=== PATIENT | male | born 1955 | race Caucasian/White ===

== ENCOUNTER → 2016-09-16 | Outpatient (REF) | payer MEDICARE, MEDICAID ==
[~2016-09-16] MED LIST: ASPI81TA83 OR; CYMBALTA PO; FLEC150T OR; LASIX; LASIX PO; LISI5TAB OR; OMEP20TA7 OR; PRADAXA; PRADAXA PO; SPIR25TA2 OR; TRAZ50TA OR; TRILIPIX PO; [UNRECOGNIZED DRUG - OTHER] PO
[2016-09-16 15:51] LABS: ALBUMIN 3.4 GM/DL (3.2-5.2); ALBUMIN/GLOBULIN RATIO 1.03 (1.00-1.93); BILIRUBIN,DIRECT 0.3 MG/DL (0.0-0.2); BILIRUBIN,TOTAL 0.8 MG/DL (0.2-1.0); TOTAL PROTEIN 6.7 GM/DL (6.4-8.2)
== END ==
LOC: M LAB REF 15:01
PROVIDERS: ATTEND Internal Medicine Cardiovascular Disease
DX: E78.2 Mixed hyperlipidemia (principal)
CPT/HCPCS: 36415; 80061; 80076; G0463

== ENCOUNTER → 2017-05-17 | Outpatient (REF) | payer MEDICARE ==
[2017-05-17 15:02] LABS: HEMOGLOBIN 14.7 g/dl (14.0-18.0); MEAN CORPUSCULAR HEMOGLOBIN 32.2 pg (27.0-33.0); MEAN CORPUSCULAR HGB CONC 33.4 g/dl (32.0-36.5); MEAN CORPUSCULAR VOLUME 96.5 fl (80.0-96.0); PLATELET COUNT, AUTOMATED 225 10^3/uL (150-450); RED BLOOD COUNT 4.56 10^6/uL (4.30-6.10); RED CELL DISTRIBUTION WIDTH 14.5 % (11.5-14.5); WHITE BLOOD COUNT 7.8 10^3/uL (4.0-10.0)
[2017-05-17 15:31] LABS: ALBUMIN 3.5 GM/DL (3.2-5.2); ALBUMIN/GLOBULIN RATIO 1.17 (1.00-1.93); ALKALINE PHOSPHATASE 119 U/L (45-117); ALT/SGPT 51 U/L (12-78); ANION GAP 8 MEQ/L (8-16); AST/SGOT 29 U/L (7-37); BILIRUBIN,TOTAL 0.7 MG/DL (0.2-1.0); BLOOD UREA NITROGEN 12 MG/DL (7-18); CALCIUM LEVEL 8.9 MG/DL (8.8-10.2); CARBON DIOXIDE LEVEL 28 MEQ/L (21-32); CHLORIDE LEVEL 106 MEQ/L (98-107); GLOMERULAR FILTRATION RATE > 60.0 (>49); GLUCOSE, FASTING 102 MG/DL (70-100); POTASSIUM SERUM 4.3 MEQ/L (3.5-5.1); SODIUM LEVEL 142 MEQ/L (136-145); TOTAL PROTEIN 6.5 GM/DL (6.4-8.2)
== END ==
LOC: M SFHCLACO 08:56
DX: I48.91 Unspecified atrial fibrillation (principal)
CPT/HCPCS: 80053

== ENCOUNTER → 2017-06-09 | Outpatient (REF) | payer MEDICARE, MEDICAID ==
[2017-06-09 15:41] LABS: INR 2.75; PROTHROMBIN TIME 30.3 SECONDS (12.4-14.5)
== END ==
LOC: M LAB REF 14:57
DX: I48.91 Unspecified atrial fibrillation (principal)
CPT/HCPCS: 85610

== ENCOUNTER → 2017-06-16 | Outpatient (REF) | payer MEDICARE, MEDICAID ==
[2017-06-16 15:29] LABS: INR 3.46; PROTHROMBIN TIME 36.5 SECONDS (12.4-14.5)
== END ==
LOC: M LAB REF 14:53
DX: I48.91 Unspecified atrial fibrillation (principal); E03.9 Hypothyroidism, unspecified
CPT/HCPCS: 85610

== ENCOUNTER → 2017-06-23 | Outpatient (REF) | payer MEDICARE, MEDICAID ==
[2017-06-23 15:24] LABS: INR 3.09; PROTHROMBIN TIME 33.3 SECONDS (12.4-14.5)
== END ==
LOC: M LAB REF 14:52
DX: I48.91 Unspecified atrial fibrillation (principal)
CPT/HCPCS: 85610

== ENCOUNTER → 2017-07-07 | Outpatient (REF) | payer MEDICARE, MEDICAID ==
[2017-07-07 15:16] LABS: INR 2.27; PROTHROMBIN TIME 25.9 SECONDS (12.4-14.5)
== END ==
LOC: M LAB REF 14:45
DX: I48.91 Unspecified atrial fibrillation (principal)
CPT/HCPCS: 85610

== ENCOUNTER → 2017-07-14 | Outpatient (REF) | payer MEDICARE, MEDICAID ==
[2017-07-14 15:12] LABS: HEMOGLOBIN 14.1 g/dl (13.5-17.5); MEAN CORPUSCULAR HEMOGLOBIN 31.6 pg (27.0-33.0); MEAN CORPUSCULAR HGB CONC 32.8 g/dl (32.0-36.5); MEAN CORPUSCULAR VOLUME 96.4 fl (80.0-96.0); PLATELET COUNT, AUTOMATED 219 10^3/uL (150-450); RED BLOOD COUNT 4.46 10^6/uL (4.30-6.10); RED CELL DISTRIBUTION WIDTH 14.6 % (11.5-14.5); WHITE BLOOD COUNT 7.5 10^3/uL (4.0-10.0)
[2017-07-14 15:31] LABS: ANION GAP 6 MEQ/L (8-16); BLOOD UREA NITROGEN 13 MG/DL (7-18); CALCIUM LEVEL 8.5 MG/DL (8.8-10.2); CARBON DIOXIDE LEVEL 28 MEQ/L (21-32); CHLORIDE LEVEL 110 MEQ/L (98-107); CREATININE FOR GFR 0.81 MG/DL (0.70-1.30); GLOMERULAR FILTRATION RATE > 60.0 (>49); GLUCOSE, FASTING 86 MG/DL (70-100); INR 2.45; POTASSIUM SERUM 4.6 MEQ/L (3.5-5.1); PROTHROMBIN TIME 27.6 SECONDS (12.4-14.5); SODIUM LEVEL 144 MEQ/L (136-145)
== END ==
LOC: M LAB REF 14:59
DX: I77.0 Arteriovenous fistula, acquired (principal); I48.91 Unspecified atrial fibrillation
CPT/HCPCS: 80048

== ENCOUNTER → 2017-09-20 | Outpatient (REF) | payer MEDICARE ==
[2017-09-20 15:16] LABS: ALBUMIN 3.3 GM/DL (3.2-5.2); ALKALINE PHOSPHATASE 75 U/L (45-117); ALT/SGPT 36 U/L (12-78); ANION GAP 11 MEQ/L (8-16); AST/SGOT 30 U/L (7-37); BILIRUBIN,TOTAL 0.7 MG/DL (0.2-1.0); BLOOD UREA NITROGEN 20 MG/DL (7-18); CALCIUM LEVEL 8.1 MG/DL (8.8-10.2); CARBON DIOXIDE LEVEL 25 MEQ/L (21-32); CHLORIDE LEVEL 108 MEQ/L (98-107); CHOLESTEROL LEVEL 125 MG/DL (<200); CHOLESTEROL RISK RATIO 3.125 (<5); CREATININE FOR GFR 0.87 MG/DL (0.70-1.30); GLOMERULAR FILTRATION RATE > 60.0 (>49); GLUCOSE, FASTING 102 MG/DL (70-100); HDL CHOLESTEROL 40 MG/DL (>40); LDL CHOLESTEROL 51.6 MG/DL (<100); NON-HDL-C 85 MG/DL; POTASSIUM SERUM 3.9 MEQ/L (3.5-5.1); SODIUM LEVEL 144 MEQ/L (136-145); TOTAL PROTEIN 6.6 GM/DL (6.4-8.2); TRIGLYCERIDES LEVEL 167 MG/DL (<150)
== END ==
LOC: M SFHCLACO 10:07
DX: E78.2 Mixed hyperlipidemia (principal); I10 Essential (primary) hypertension
CPT/HCPCS: 80053

== ENCOUNTER → 2021-06-11 | Outpatient (CLI) | payer MEDICARE, MEDICAID, OTHER | LOC: M SOG 08:07 | PROVIDERS: ATTEND Orthopaedic Surgery | DX: M25.512 Pain in left shoulder (principal) ==

== ENCOUNTER → 2021-07-30 | Outpatient (CLI) | payer OTHER ==
[~2021-07-30] MED LIST changes: +ISOVUE-300 61% 50ML VIAL As Ordered ONE; +LIDOCAINE 1% MDV 20ML VIAL As Ordered ONE
== END ==
LOC: M RADPRO 08:58
PROVIDERS: ATTEND Orthopaedic Surgery
DX: S46.012D Strain of muscle(s) and tendon(s) of the rotator cuff of left shoulder, subsequent encounter (principal)
CPT/HCPCS: 23350; 73201; 77002; Q9967

== ENCOUNTER → 2022-03-01 | Outpatient (CLI) | payer MEDICARE, MEDICAID ==
[~2022-03-01] MED LIST changes: +ALLO300T2 PO; +ASPI-1 PO; +BUME2TAB3 PO; +CARV12.5 PO; +FOLI1TAB11 PO; -ISOVUE-300 61% 50ML VIAL As Ordered ONE; -LIDOCAINE 1% MDV 20ML VIAL As Ordered ONE; +LISI10TA22 PO; +MAGN250T7 PO; +MAPA500C PO; +MULT-40 PO; +PANT20TA6 PO; +POTA10CA33 PO; +PRED10TA2 PO; +TRAM50TA2 PO; +VITA100T71 PO
== END ==
LOC: M LABSMTC 11:15
PROVIDERS: ATTEND Anesthesiology
DX: Z01.812 Encounter for preprocedural laboratory examination (principal); Z11.52 Encounter for screening for COVID-19

== ENCOUNTER 2022-03-04 09:23 | Day surgery (SDC) | payer MEDICARE, MEDICAID ==
[~2022-03-04] VITALS: Ht 182.9 cm; Wt 135.6 kg
[~2022-03-04 09:23] MED LIST changes: +CYCLOPENTOLATE 1% OPHTH SOLN 2ML BTL OD SCH; +FLURBIPROFEN 0.03% OPHTH SOLN 2.5 ML OD SCH; +LIDOCAINE 1% 1ML PF SYRINGE (OR EYE CASES) As Ordered ONE; +LR 1,000 ML IV SCH; +MAXITROL OPHTH SUSP 5ML As Ordered ONE; +PHENYLEPHRINE 10% OPHTH SOL 5ML OD ONE; +PHENYLEPHRINE 2.5% OPHTH SOL 2ML OD SCH; +TETRACAINE 0.5% OPHTH SOLN 4ML OD SCH
[2022-03-04] MEDS ORDERED: MIDAZOLAM INJ 2MG/2ML VIAL (J2250 PER 1MG) As Ordered ONE (11:23)
[2022-03-04] MEDS ORDERED: fentaNYL 100 MCG/2 ML INJECTION As Ordered ONE (11:23)
[2022-03-04] MEDS ORDERED: ACETYLCHOLINE OPHTH SOLN 1% 2ML (MIOCHOL-E) As Ordered ONE (12:38)
[2022-03-04 12:48] VITALS: BP 104/62
== END 2022-03-04 13:15 | disposition home or self-care (01) ==
LOC: M SDC 09:23
PROVIDERS: ATTEND Ophthalmology
DX: H25.11 Age-related nuclear cataract, right eye (principal); I48.91 Unspecified atrial fibrillation; I10 Essential (primary) hypertension; Z95.0 Presence of cardiac pacemaker; G47.33 Obstructive sleep apnea (adult) (pediatric); Z79.82 Long term (current) use of aspirin; Z79.899 Other long term (current) drug therapy
CPT/HCPCS: 66983; J2250; J3010; V2632

== ENCOUNTER → 2022-04-26 | Outpatient (CLI) | payer MEDICARE, MEDICAID ==
[~2022-04-26] MED LIST changes: -CYCLOPENTOLATE 1% OPHTH SOLN 2ML BTL OD SCH; -FLURBIPROFEN 0.03% OPHTH SOLN 2.5 ML OD SCH; -LIDOCAINE 1% 1ML PF SYRINGE (OR EYE CASES) As Ordered ONE; -LR 1,000 ML IV SCH; -MAXITROL OPHTH SUSP 5ML As Ordered ONE; -PHENYLEPHRINE 10% OPHTH SOL 5ML OD ONE; -PHENYLEPHRINE 2.5% OPHTH SOL 2ML OD SCH; -TETRACAINE 0.5% OPHTH SOLN 4ML OD SCH
== END ==
LOC: M LABSMTC 09:02
PROVIDERS: ATTEND Anesthesiology
DX: Z01.812 Encounter for preprocedural laboratory examination (principal); Z11.52 Encounter for screening for COVID-19

== ENCOUNTER 2022-04-29 07:26 | Day surgery (SDC) | payer MEDICARE, MEDICAID ==
[~2022-04-29] VITALS: Ht 182.9 cm; Wt 140.1 kg
[~2022-04-29 07:26] MED LIST changes: +CYCLOPENTOLATE 1% OPHTH SOLN 2ML BTL OS SCH; +FLURBIPROFEN 0.03% OPHTH SOLN 2.5 ML OS SCH; +LIDOCAINE 1% SDV 5ML VIAL As Ordered ONE; +LR 1,000 ML IV SCH; +MAXITROL OPHTH SUSP 5ML As Ordered ONE; +PHENYLEPHRINE 10% OPHTH SOL 5ML OS ONE; +PHENYLEPHRINE 2.5% OPHTH SOL 2ML OS SCH; +TETRACAINE 0.5% OPHTH SOLN 4ML OS SCH
[2022-04-29] MEDS ORDERED: MIDAZOLAM INJ 2MG/2ML VIAL As Ordered ONE (11:19)
[2022-04-29 12:30] VITALS: BP 124/71
== END 2022-04-29 12:35 | disposition home or self-care (01) ==
LOC: M SDC 07:26
PROVIDERS: ATTEND Ophthalmology
DX: H25.12 Age-related nuclear cataract, left eye (principal); I10 Essential (primary) hypertension; I48.91 Unspecified atrial fibrillation; Z95.5 Presence of coronary angioplasty implant and graft; M10.9 Gout, unspecified; M19.90 Unspecified osteoarthritis, unspecified site; Z86.73 Personal history of transient ischemic attack (TIA), and cerebral infarction without residual deficits; Z95.818 Presence of other cardiac implants and grafts; Z79.899 Other long term (current) drug therapy; Z79.82 Long term (current) use of aspirin; Z79.52 Long term (current) use of systemic steroids; Z79.891 Long term (current) use of opiate analgesic
CPT/HCPCS: 66984; J2250; V2632

== ENCOUNTER → 2022-06-28 | Outpatient (REF) | payer MEDICARE, MEDICAID ==
[~2022-06-28] MED LIST changes: -CYCLOPENTOLATE 1% OPHTH SOLN 2ML BTL OS SCH; -FLURBIPROFEN 0.03% OPHTH SOLN 2.5 ML OS SCH; -LIDOCAINE 1% SDV 5ML VIAL As Ordered ONE; -LR 1,000 ML IV SCH; -MAXITROL OPHTH SUSP 5ML As Ordered ONE; -PHENYLEPHRINE 10% OPHTH SOL 5ML OS ONE; -PHENYLEPHRINE 2.5% OPHTH SOL 2ML OS SCH; -TETRACAINE 0.5% OPHTH SOLN 4ML OS SCH
[2022-06-28 14:19] LABS: HEPATITIS B CORE ANTIBODY IGM NEGATIVE (NEGATIVE); HEPATITIS C VIRUS ABY INDEX 0.1 INDEX (<0.8)
== END ==
LOC: M SFHCADAM 10:14
PROVIDERS: ATTEND Physician Assistant Medical
DX: R79.89 Other specified abnormal findings of blood chemistry (principal)

== ENCOUNTER → 2022-08-02 | Outpatient (CLI) | payer MEDICARE, MEDICAID ==
[2022-08-02 13:33] LABS: ALBUMIN 3.1 G/DL (3.2-5.2); ALKALINE PHOSPHATASE 70 U/L (46-116); ALT/SGPT 160 U/L (7.0-40); AST/SGOT 121 U/L (<34); BILIRUBIN,TOTAL 1.1 MG/DL (0.3-1.2); BLOOD UREA NITROGEN 20 MG/DL (9-23); CALCIUM LEVEL 8.8 MG/DL (8.3-10.6); CARBON DIOXIDE LEVEL 31 MMOL/L (20-31); CHLORIDE LEVEL 104 MMOL/L (98-107); CREATININE FOR GFR 0.86 MG/DL (0.70-1.30); GLOMERULAR FILTRATION RATE > 60.0 (>49); GLUCOSE, FASTING 98 MG/DL (74-106); POTASSIUM SERUM 3.8 MMOL/L (3.5-5.1); SODIUM LEVEL 141 MMOL/L (136-145); TOTAL PROTEIN 6.4 G/DL (5.7-8.2)
== END ==
LOC: M PLALAB 10:32
PROVIDERS: ATTEND Physician Assistant Medical
DX: R79.89 Other specified abnormal findings of blood chemistry (principal)

== ENCOUNTER → 2022-08-02 | Outpatient (CLI) | payer MEDICARE, MEDICAID | LOC: M WHC 09:54 | PROVIDERS: ATTEND Physician Assistant Medical | DX: R79.89 Other specified abnormal findings of blood chemistry (principal) ==

== ENCOUNTER → 2022-12-22 | Outpatient (REF) | payer MEDICARE, MEDICAID ==
[~2022-12-22] MED LIST changes: -POTA10CA33 PO; +POTA10CA60 PO
[2022-12-22 13:28] LABS: BASO # 0.1 10^3/uL (0.0-0.2); BASO % 0.7 % (0.0-1.0); EOS # 0.1 10^3/uL (0.0-0.5); EOS % 0.7 % (0.0-3.0); HEMATOCRIT 35.2 % (42.0-52.0); HEMOGLOBIN 12.7 g/dl (13.5-17.5); LYMPH % 20.7 % (24.0-44.0); MEAN CORPUSCULAR HEMOGLOBIN 39.7 pg (27.0-33.0); MEAN CORPUSCULAR HGB CONC 36.1 g/dl (32.0-36.5); MONO # 1.4 10^3/uL (0.0-0.8); MONO % 14.7 % (2.0-8.0); NEUTROPHILS # 5.9 10^3/uL (1.5-8.5); NEUTROPHILS % 61.5 % (36.0-66.0); PLATELET COUNT, AUTOMATED 146 10^3/uL (150-450); WHITE BLOOD COUNT 9.5 10^3/uL (4.0-10.0)
[2022-12-22 13:46] LABS: FOLATE > 24.0 NG/ML (>5.4); THYROID STIMULATING HORMONE 2.017 uIU/ML (0.55-4.78); TOTAL 25(OH) VITAMIN D 38.4 NG/ML (20.0-100.0); VITAMIN B12 LEVEL 1186 PG/ML (211-911)
[2022-12-22 13:52] LABS: ALBUMIN 2.2 G/DL (3.2-5.2); ALKALINE PHOSPHATASE 149 U/L (46-116); ALT/SGPT 224 U/L (7.0-40); AST/SGOT 418 U/L (<34); BILIRUBIN,TOTAL 12.8 MG/DL (0.3-1.2); BLOOD UREA NITROGEN 16 MG/DL (9-23); CALCIUM LEVEL 8.1 MG/DL (8.3-10.6); CARBON DIOXIDE LEVEL 36 MMOL/L (20-31); CHLORIDE LEVEL 97 MMOL/L (98-107); CHOLESTEROL LEVEL 138 MG/DL (<200); CHOLESTEROL RISK RATIO 10.45 (<5); CREATININE FOR GFR 0.74 MG/DL (0.70-1.30); GLOMERULAR FILTRATION RATE > 60.0 (>49); GLUCOSE, FASTING 93 MG/DL (74-106); HDL CHOLESTEROL 13.2 MG/DL (>40); LDL CHOLESTEROL 83.4 MG/DL (<100); MAGNESIUM LEVEL 2.1 MG/DL (1.8-2.4); NON-HDL-C 124.8 MG/DL; POTASSIUM SERUM 2.9 MMOL/L (3.5-5.1); SODIUM LEVEL 139 MMOL/L (136-145); TOTAL PROTEIN 6.4 G/DL (5.7-8.2); TRIGLYCERIDES LEVEL 207 MG/DL (<150)
== END ==
LOC: M SFHCADAM 11:14
PROVIDERS: ATTEND Physician Assistant Medical
DX: E87.6 Hypokalemia (principal); I25.10 Atherosclerotic heart disease of native coronary artery without angina pectoris; E78.2 Mixed hyperlipidemia; E53.8 Deficiency of other specified B group vitamins; K76.0 Fatty (change of) liver, not elsewhere classified; E66.01 Morbid (severe) obesity due to excess calories

== ENCOUNTER → 2023-01-03 | Outpatient (REF) | payer MEDICARE, MEDICAID ==
[2023-01-03 15:58] LABS: ALKALINE PHOSPHATASE 118 U/L (46-116); ALT/SGPT 130 U/L (7.0-40); AST/SGOT 215 U/L (<34); BILIRUBIN,TOTAL 6.1 MG/DL (0.3-1.2); BLOOD UREA NITROGEN 14 MG/DL (9-23); CALCIUM LEVEL 8.1 MG/DL (8.3-10.6); CARBON DIOXIDE LEVEL 32 MMOL/L (20-31); CHLORIDE LEVEL 100 MMOL/L (98-107); CREATININE FOR GFR 0.71 MG/DL (0.70-1.30); GLOMERULAR FILTRATION RATE > 60.0 (>49); GLUCOSE, FASTING 84 MG/DL (74-106); POTASSIUM SERUM 3.5 MMOL/L (3.5-5.1); SODIUM LEVEL 138 MMOL/L (136-145); TOTAL PROTEIN 5.8 G/DL (5.7-8.2)
== END ==
LOC: M SFHCADAM 09:05
PROVIDERS: ATTEND Physician Assistant Medical
DX: E87.6 Hypokalemia (principal)

== ENCOUNTER → 2023-01-12 | Outpatient (REF) | payer MEDICARE, MEDICAID ==
[2023-01-12 13:14] LABS: BASO # 0.1 10^3/uL (0.0-0.2); BASO % 0.8 % (0.0-1.0); EOS # 0.1 10^3/uL (0.0-0.5); EOS % 1.2 % (0.0-3.0); HEMATOCRIT 34.4 % (42.0-52.0); HEMOGLOBIN 11.9 g/dl (13.5-17.5); LYMPH # 1.9 10^3/uL (1.5-5.0); LYMPH % 28.5 % (24.0-44.0); MEAN CORPUSCULAR HGB CONC 34.6 g/dl (32.0-36.5); MONO % 14.8 % (2.0-8.0); NEUTROPHILS # 3.6 10^3/uL (1.5-8.5); NEUTROPHILS % 54.1 % (36.0-66.0); PLATELET COUNT, AUTOMATED 124 10^3/uL (150-450); WHITE BLOOD COUNT 6.6 10^3/uL (4.0-10.0)
[2023-01-12 13:21] LABS: MEAN CORPUSCULAR VOLUME 118.6 fl (80.0-96.0)
[2023-01-12 13:22] LABS: LIPASE 48 U/L (12-53)
[2023-01-12 14:01] LABS: ALBUMIN 2.3 G/DL (3.2-5.2); ALKALINE PHOSPHATASE 132 U/L (46-116); ALT/SGPT 148 U/L (7.0-40); AST/SGOT 247 U/L (<34); BILIRUBIN,TOTAL 6.4 MG/DL (0.3-1.2); BLOOD UREA NITROGEN 15 MG/DL (9-23); CALCIUM LEVEL 7.2 MG/DL (8.3-10.6); CARBON DIOXIDE LEVEL 34 MMOL/L (20-31); CHLORIDE LEVEL 100 MMOL/L (98-107); CREATININE FOR GFR 0.66 MG/DL (0.70-1.30); GLOMERULAR FILTRATION RATE > 60.0 (>49); GLUCOSE, FASTING 80 MG/DL (74-106); MAGNESIUM LEVEL 1.9 MG/DL (1.8-2.4); POTASSIUM SERUM 2.8 MMOL/L (3.5-5.1); SODIUM LEVEL 140 MMOL/L (136-145); TOTAL PROTEIN 6.3 G/DL (5.7-8.2)
== END ==
LOC: M LABDRWAD 12:12
PROVIDERS: ATTEND Physician Assistant Medical
DX: I25.10 Atherosclerotic heart disease of native coronary artery without angina pectoris (principal); E83.42 Hypomagnesemia; E87.6 Hypokalemia; R79.89 Other specified abnormal findings of blood chemistry

== ENCOUNTER → 2023-01-21 | Outpatient (REF) | payer MEDICARE, MEDICAID ==
[2023-01-21 13:45] LABS: BLOOD UREA NITROGEN 15 MG/DL (9-23); CALCIUM LEVEL 8.8 MG/DL (8.3-10.6); CARBON DIOXIDE LEVEL 34 MMOL/L (20-31); CHLORIDE LEVEL 101 MMOL/L (98-107); CREATININE FOR GFR 0.72 MG/DL (0.70-1.30); GLOMERULAR FILTRATION RATE > 60.0 (>49); GLUCOSE, FASTING 78 MG/DL (74-106); POTASSIUM SERUM 3.6 MMOL/L (3.5-5.1); SODIUM LEVEL 142 MMOL/L (136-145)
== END ==
LOC: M SFHCADAM 09:15
PROVIDERS: ATTEND Physician Assistant Medical
DX: E87.6 Hypokalemia (principal)

== ENCOUNTER → 2023-02-22 | Outpatient (REF) | payer MEDICARE, MEDICAID ==
[2023-02-22 15:05] LABS: ALKALINE PHOSPHATASE 139 U/L (46-116); ALT/SGPT 188 U/L (7.0-40); AST/SGOT 326 U/L (<34); BILIRUBIN,TOTAL 5.5 MG/DL (0.3-1.2); BLOOD UREA NITROGEN 14 MG/DL (9-23); CALCIUM LEVEL 8.1 MG/DL (8.3-10.6); CARBON DIOXIDE LEVEL 31 MMOL/L (20-31); CHLORIDE LEVEL 103 MMOL/L (98-107); CREATININE FOR GFR 0.76 MG/DL (0.70-1.30); GLOMERULAR FILTRATION RATE > 60.0 (>49); GLUCOSE, FASTING 91 MG/DL (74-106); POTASSIUM SERUM 3.5 MMOL/L (3.5-5.1); SODIUM LEVEL 141 MMOL/L (136-145); TOTAL PROTEIN 6.3 G/DL (5.7-8.2)
== END ==
LOC: M SFHCADAM 09:22
PROVIDERS: ATTEND Physician Assistant Medical
DX: E87.6 Hypokalemia (principal)

== ENCOUNTER → 2023-02-22 | Outpatient (REF) | payer MEDICARE, MEDICAID ==
[2023-02-22 14:58] LABS: BASO # 0.1 10^3/uL (0.0-0.2); BASO % 0.7 % (0.0-1.0); EOS # 0.1 10^3/uL (0.0-0.5); EOS % 1.1 % (0.0-3.0); HEMATOCRIT 35.8 % (42.0-52.0); HEMOGLOBIN 12.5 g/dl (13.5-17.5); LYMPH # 2.3 10^3/uL (1.5-5.0); LYMPH % 32.5 % (24.0-44.0); MEAN CORPUSCULAR HEMOGLOBIN 40.2 pg (27.0-33.0); MEAN CORPUSCULAR HGB CONC 34.9 g/dl (32.0-36.5); MONO # 0.7 10^3/uL (0.0-0.8); MONO % 10.4 % (2.0-8.0); NEUTROPHILS # 3.8 10^3/uL (1.5-8.5); NEUTROPHILS % 54.6 % (36.0-66.0); PLATELET COUNT, AUTOMATED 115 10^3/uL (150-450); RED BLOOD COUNT 3.11 10^6/uL (4.30-6.10)
[2023-02-22 15:07] LABS: ALKALINE PHOSPHATASE 141 U/L (46-116); ALT/SGPT 185 U/L (7.0-40); AST/SGOT 326 U/L (<34); BILIRUBIN,TOTAL 5.8 MG/DL (0.3-1.2); BLOOD UREA NITROGEN 15 MG/DL (9-23); CALCIUM LEVEL 8.1 MG/DL (8.3-10.6); CARBON DIOXIDE LEVEL 31 MMOL/L (20-31); CHLORIDE LEVEL 100 MMOL/L (98-107); CREATININE FOR GFR 0.77 MG/DL (0.70-1.30); GLOMERULAR FILTRATION RATE > 60.0 (>49); GLUCOSE, FASTING 92 MG/DL (74-106); MAGNESIUM LEVEL 1.9 MG/DL (1.8-2.4); POTASSIUM SERUM 3.4 MMOL/L (3.5-5.1); SODIUM LEVEL 138 MMOL/L (136-145); TOTAL PROTEIN 6.3 G/DL (5.7-8.2)
[2023-02-22 15:13] LABS: MEAN CORPUSCULAR VOLUME 115.1 fl (80.0-96.0)
== END ==
LOC: M LABDRWAD 12:31
PROVIDERS: ATTEND Registered Nurse
DX: E78.2 Mixed hyperlipidemia (principal); I50.32 Chronic diastolic (congestive) heart failure; I48.0 Paroxysmal atrial fibrillation; R06.02 Shortness of breath

== ENCOUNTER → 2023-02-24 | Outpatient (CLI) | payer MEDICARE, MEDICAID | LOC: M LABDRWAD 10:35 | PROVIDERS: ATTEND Registered Nurse | DX: E78.2 Mixed hyperlipidemia (principal); I48.91 Unspecified atrial fibrillation; I50.32 Chronic diastolic (congestive) heart failure; L24.A9 Irritant contact dermatitis due friction or contact with other specified body fluids; Z95.0 Presence of cardiac pacemaker; I47.20 Ventricular tachycardia, unspecified ==

== ENCOUNTER → 2023-03-22 | Outpatient (REF) | payer MEDICARE, MEDICAID ==
[2023-03-22 14:15] LABS: BLOOD UREA NITROGEN 16 MG/DL (9-23); CALCIUM LEVEL 7.5 MG/DL (8.3-10.6); CARBON DIOXIDE LEVEL 27 MMOL/L (20-31); CHLORIDE LEVEL 108 MMOL/L (98-107); CREATININE FOR GFR 0.69 MG/DL (0.70-1.30); GLOMERULAR FILTRATION RATE > 60.0 (>49); GLUCOSE, FASTING 71 MG/DL (74-106); POTASSIUM SERUM 3.9 MMOL/L (3.5-5.1); SODIUM LEVEL 142 MMOL/L (136-145)
== END ==
LOC: M LABWUC 12:38
PROVIDERS: ATTEND Family Medicine
DX: I11.0 Hypertensive heart disease with heart failure (principal)

== ENCOUNTER → 2023-04-04 | Outpatient (REF) | payer MEDICARE, MEDICAID ==
[2023-04-04 13:32] LABS: ALKALINE PHOSPHATASE 125 U/L (46-116); ALT/SGPT 146 U/L (7.0-40); AST/SGOT 199 U/L (<34); BILIRUBIN,TOTAL 4.4 MG/DL (0.3-1.2); BLOOD UREA NITROGEN 14 MG/DL (9-23); CALCIUM LEVEL 7.8 MG/DL (8.3-10.6); CARBON DIOXIDE LEVEL 32 MMOL/L (20-31); CHLORIDE LEVEL 108 MMOL/L (98-107); CREATININE FOR GFR 0.67 MG/DL (0.70-1.30); GLOMERULAR FILTRATION RATE > 60.0 (>49); GLUCOSE, FASTING 101 MG/DL (74-106); MAGNESIUM LEVEL 1.9 MG/DL (1.8-2.4); POTASSIUM SERUM 3.7 MMOL/L (3.5-5.1); SODIUM LEVEL 143 MMOL/L (136-145); TOTAL PROTEIN 5.7 G/DL (5.7-8.2)
== END ==
LOC: M LABDRWAD 12:28
PROVIDERS: ATTEND Registered Nurse
DX: R06.02 Shortness of breath (principal); I50.32 Chronic diastolic (congestive) heart failure; I50.9 Heart failure, unspecified; I48.91 Unspecified atrial fibrillation

== ENCOUNTER → 2023-04-15 | Outpatient (CLI) | payer MEDICARE, MEDICAID ==
[2023-04-15 13:11] LABS: INR 1.36; PROTHROMBIN TIME 16.4 SECONDS (12.5-14.5)
[2023-04-15 13:14] LABS: ALKALINE PHOSPHATASE 148 U/L (46-116); ALT/SGPT 130 U/L (7.0-40); AST/SGOT 192 U/L (<34); BILIRUBIN,DIRECT 2.9 MG/DL (<0.4); BILIRUBIN,TOTAL 4.5 MG/DL (0.3-1.2); IRON (FE) 180 UG/DL (65-175); PERCENT SATURATION 60.4 % (19.7-50.0); TOTAL IRON BINDING CAPACITY 298 UG/DL (250-425); TOTAL PROTEIN 5.9 G/DL (5.7-8.2)
[2023-04-15 13:50] LABS: HEPATITIS B CORE ANTIBODY IGM NEGATIVE (NEGATIVE); HEPATITIS C VIRUS ABY INDEX 0.58 INDEX (<0.8)
== END ==
LOC: M ADAMS 10:51
PROVIDERS: ATTEND Internal Medicine Gastroenterology
DX: K76.1 Chronic passive congestion of liver (principal); K70.10 Alcoholic hepatitis without ascites; Z11.59 Encounter for screening for other viral diseases

== ENCOUNTER → 2023-04-25 | Outpatient (CLI) | payer MEDICARE, MEDICAID ==
[2023-04-25 15:42] LABS: BASO # 0.1 10^3/uL (0.0-0.2); BASO % 0.7 % (0.0-1.0); EOS # 0.1 10^3/uL (0.0-0.5); EOS % 1.1 % (0.0-3.0); HEMATOCRIT 34.6 % (42.0-52.0); HEMOGLOBIN 12.1 g/dl (13.5-17.5); LYMPH # 2.3 10^3/uL (1.5-5.0); LYMPH % 31.6 % (24.0-44.0); MEAN CORPUSCULAR HEMOGLOBIN 38.8 pg (27.0-33.0); MEAN CORPUSCULAR VOLUME 110.9 fl (80.0-96.0); MONO # 0.8 10^3/uL (0.0-0.8); MONO % 10.7 % (2.0-8.0); NEUTROPHILS % 55.4 % (36.0-66.0); RED BLOOD COUNT 3.12 10^6/uL (4.30-6.10); WHITE BLOOD COUNT 7.3 10^3/uL (4.0-10.0)
[2023-04-25 16:01] LABS: PLATELET COUNT, AUTOMATED 94 10^3/uL (150-450)
[2023-04-25 16:11] LABS: ALBUMIN 2.1 G/DL (3.2-5.2); ALKALINE PHOSPHATASE 152 U/L (46-116); ALT/SGPT 139 U/L (7.0-40); AST/SGOT 241 U/L (<34); BLOOD UREA NITROGEN 12 MG/DL (9-23); CALCIUM LEVEL 7.7 MG/DL (8.3-10.6); CARBON DIOXIDE LEVEL 30 MMOL/L (20-31); CHLORIDE LEVEL 101 MMOL/L (98-107); CHOLESTEROL LEVEL 125 MG/DL (<200); CHOLESTEROL RISK RATIO 3.72 (<5); CREATININE FOR GFR 0.67 MG/DL (0.70-1.30); GLOMERULAR FILTRATION RATE > 60.0 (>49); GLUCOSE, FASTING 85 MG/DL (74-106); HDL CHOLESTEROL 33.6 MG/DL (>40); LDL CHOLESTEROL 69.6 MG/DL (<100); MAGNESIUM LEVEL 1.8 MG/DL (1.8-2.4); NON-HDL-C 91.4 MG/DL; POTASSIUM SERUM 3.2 MMOL/L (3.5-5.1); SODIUM LEVEL 137 MMOL/L (136-145); THYROID STIMULATING HORMONE 1.678 uIU/ML (0.55-4.78); TOTAL PROTEIN 6.6 G/DL (5.7-8.2); TRIGLYCERIDES LEVEL 109 MG/DL (<150)
[2023-04-27 15:09] LABS: LDL DIRECT 57 mg/dL (0-99)
== END ==
LOC: M LAB 15:11
PROVIDERS: ATTEND Internal Medicine Cardiovascular Disease
DX: I50.32 Chronic diastolic (congestive) heart failure (principal); E78.2 Mixed hyperlipidemia; I48.91 Unspecified atrial fibrillation; R06.02 Shortness of breath; R73.09 Other abnormal glucose; Z13.29 Encounter for screening for other suspected endocrine disorder

== ENCOUNTER → 2023-05-17 | Outpatient (CLI) | payer MEDICARE, MEDICAID | LOC: M RAD 08:18 | PROVIDERS: ATTEND Internal Medicine Nephrology | DX: I10 Essential (primary) hypertension (principal); K74.60 Unspecified cirrhosis of liver; R16.1 Splenomegaly, not elsewhere classified ==

== ENCOUNTER → 2023-05-23 | Outpatient (REF) | payer MEDICARE, MEDICAID ==
[2023-05-23 13:31] LABS: ALBUMIN 1.8 G/DL (3.2-5.2); ALKALINE PHOSPHATASE 173 U/L (46-116); ALT/SGPT 150 U/L (7.0-40); AST/SGOT 274 U/L (<34); BILIRUBIN,DIRECT 9.8 MG/DL (<0.4); BILIRUBIN,TOTAL 14.3 MG/DL (0.3-1.2); BLOOD UREA NITROGEN 20 MG/DL (9-23); CALCIUM LEVEL 7.2 MG/DL (8.3-10.6); CARBON DIOXIDE LEVEL 29 MMOL/L (20-31); CHLORIDE LEVEL 104 MMOL/L (98-107); GLOMERULAR FILTRATION RATE > 60.0 (>49); GLUCOSE, FASTING 85 MG/DL (74-106); POTASSIUM SERUM 3.3 MMOL/L (3.5-5.1); SODIUM LEVEL 140 MMOL/L (136-145); TOTAL PROTEIN 6.4 G/DL (5.7-8.2)
== END ==
LOC: M SFHCADAM 11:14
PROVIDERS: ATTEND Physician Assistant Medical
DX: K70.31 Alcoholic cirrhosis of liver with ascites (principal)

== ENCOUNTER → 2023-05-26 | Outpatient (CLI) | payer MEDICARE, MEDICAID ==
[~2023-05-26] MED LIST changes: +ALDA25TA2 PO; +ASPI81TA26 PO; +CARV6.25 PO
== END ==
LOC: M RAD 07:26
PROVIDERS: ATTEND Physician Assistant Medical
DX: K76.0 Fatty (change of) liver, not elsewhere classified (principal); K70.31 Alcoholic cirrhosis of liver with ascites

== ENCOUNTER → 2023-05-26 | Outpatient (CLI) | payer MEDICARE, MEDICAID ==
[~2023-05-26] VITALS: Ht 182.9 cm; Wt 290.0 kg
[2023-05-26 13:32] VITALS: TEMP 98.1
[2023-05-26 15:45] VITALS: BP 142/67; O2SAT 99
[2023-05-26 16:07] LABS: APPEARANCE, BODY FLUID CLEAR (CLEAR); ASCITES FL COLOR YELLOW (COLORLESS); SOURCE, BODY FLUID ASCITES
[2023-05-26 18:01] LABS: SOURCE, BODY FLUID ALBUMIN ASCITES
[2023-05-26 18:08] LABS: SOURCE, BODY FLUID TOT PROTEIN ASCITES; TOTAL PROTEIN, BODY FLUID < 2.0 G/DL (NOT ESTABLISHED)
== END ==
LOC: M IRPRO 13:12
PROVIDERS: ATTEND Physician Assistant Medical
DX: K70.31 Alcoholic cirrhosis of liver with ascites (principal); K76.0 Fatty (change of) liver, not elsewhere classified

== ENCOUNTER → 2023-06-06 | Outpatient (CLI) | payer MEDICARE, MEDICAID ==
[2023-06-06 08:15] VITALS: TEMP 95.8
[2023-06-06 09:03] VITALS: BP 136/60; O2SAT 100
== END ==
LOC: M IRPRO 07:42
PROVIDERS: ATTEND Physician Assistant Medical
DX: K70.31 Alcoholic cirrhosis of liver with ascites (principal); R60.9 Edema, unspecified

== ENCOUNTER → 2023-06-06 | Outpatient (CLI) | payer MEDICARE, MEDICAID ==
[2023-06-06 09:41] LABS: BLOOD UREA NITROGEN 23 MG/DL (9-23); CALCIUM LEVEL 7.7 MG/DL (8.3-10.6); CARBON DIOXIDE LEVEL 32 MMOL/L (20-31); CHLORIDE LEVEL 103 MMOL/L (98-107); CREATININE FOR GFR 0.95 MG/DL (0.70-1.30); GLOMERULAR FILTRATION RATE > 60.0 (>49); GLUCOSE, FASTING 97 MG/DL (74-106); POTASSIUM SERUM 3.7 MMOL/L (3.5-5.1); SODIUM LEVEL 137 MMOL/L (136-145)
== END ==
LOC: M LAB 07:46
PROVIDERS: ATTEND Internal Medicine Nephrology
DX: R60.9 Edema, unspecified (principal)

== ENCOUNTER 2023-06-13 04:55 | Inpatient (IN) | payer MEDICARE, MEDICAID ==
[~2023-06-13] VITALS: Ht 182.9 cm; Wt 136.7 kg
[2023-06-13 08:39] LABS: LIPASE 46 U/L (12-53)
[2023-06-13 08:49] LABS: ALBUMIN 1.7 G/DL (3.2-5.2); ALKALINE PHOSPHATASE 159 U/L (46-116); ALT/SGPT 91 U/L (7.0-40); AST/SGOT 174 U/L (<34); BILIRUBIN,DIRECT 10.4 MG/DL (<0.4); BILIRUBIN,TOTAL 17.4 MG/DL (0.3-1.2); BLOOD UREA NITROGEN 26 MG/DL (9-23); CARBON DIOXIDE LEVEL 23 MMOL/L (20-31); CHLORIDE LEVEL 104 MMOL/L (98-107); CREATININE FOR GFR 1.17 MG/DL (0.70-1.30); GLOMERULAR FILTRATION RATE > 60.0 (>49); GLUCOSE, FASTING 76 MG/DL (74-106); POTASSIUM SERUM 5.1 MMOL/L (3.5-5.1); SODIUM LEVEL 134 MMOL/L (136-145); TOTAL PROTEIN 6.4 G/DL (5.7-8.2)
[2023-06-13 08:54] LABS: HEMATOCRIT 32.8 % (42.0-52.0); HEMOGLOBIN 11.3 g/dl (13.5-17.5); MEAN CORPUSCULAR HEMOGLOBIN 40.6 pg (27.0-33.0); MEAN CORPUSCULAR HGB CONC 34.5 g/dl (32.0-36.5); RED BLOOD COUNT 2.78 10^6/uL (4.30-6.10); WHITE BLOOD COUNT 7.5 10^3/uL (4.0-10.0)
[2023-06-13 09:03] LABS: PLATELET COUNT, AUTOMATED 95 10^3/uL (150-450)
[2023-06-13 09:20] LABS: ANISOCYTOSIS 1+; ATYPICAL LYMPH 1 % (0-5); LYMPHOCYTES 13 % (16-44); MONOCYTES 13 % (0-5); NEUTROPHILS 55 % (28-66); PLATELET ESTIMATE DECREASED (NORMAL); POIKILOCYTOSIS 1+; POLYCHROMASIA 1+
[2023-06-13] MEDS ORDERED: ISOVUE-370 76% 100ML VIAL As Ordered ONE (09:34)
[2023-06-13 12:05] LABS: INR 1.72; PARTIAL THROMBOPLASTIN TIME 33.9 SECONDS (24.8-34.2); PROTHROMBIN TIME 19.6 SECONDS (12.5-14.5)
[2023-06-13] MEDS ORDERED: BUME2TAB3 PO (12:40)
[2023-06-13] MEDS ORDERED: BUDE10.2 INH (12:40)
[2023-06-13] MEDS ORDERED: ACET-683 PO (12:40)
[2023-06-13] MEDS ORDERED: HOME MED LIST COMPLETE! XX SCH (12:40)
[2023-06-13] MEDS ORDERED: CARV3.12 PO (12:40)
[2023-06-13] MEDS ORDERED: ALBU8.5H INH (12:40)
[2023-06-13] MEDS ORDERED: EPLE25TA PO (12:40)
[2023-06-13 12:46] LABS: RSV AMPLIFICATION NEGATIVE (NEGATIVE)
[2023-06-13 13:09] LABS: FOLATE > 24.00 NG/ML (>5.4); VITAMIN B12 LEVEL 1859 PG/ML (211-911)
[2023-06-13 13:18] LABS: PROCALCITONIN 11.91 ng/ml
[2023-06-13 13:58] VITALS: BP 114/57; TEMP 98.1; O2SAT 100
[2023-06-13 14:03] LABS: SOURCE, BODY FLUID ALBUMIN ASCITES
[2023-06-13 14:08] LABS: SOURCE, BODY FLUID GLUCOSE ASCITES
[2023-06-13 14:10] LABS: SOURCE, BODY FLUID TOT PROTEIN ASCITES; TOTAL PROTEIN, BODY FLUID < 2.0 G/DL (NOT ESTABLISHED)
[2023-06-13 14:25] LABS: APPEARANCE, BODY FLUID CLOUDY (CLEAR); ASCITES FL COLOR YELLOW (COLORLESS); SOURCE, BODY FLUID ASCITES
[2023-06-13] MEDS: cefTRIAXone SOD 2 GM in D5W MINI-BAG PLUS 50 ML IV SCH (14:42)
[2023-06-13] MEDS: FOLIC ACID 1MG TAB PO SCH (15:46)
[2023-06-13] MEDS: allopurinoL 300 MG TAB PO SCH (15:46)
[2023-06-13] MEDS: ASPIRIN 81MG ENTERIC TABLET PO SCH (15:46)
[2023-06-13] MEDS: HEPARIN SOD (PORCINE) 5000UNITS/ML 1ML VIAL/SYRINGE SC SCH (15:49)
[2023-06-13 16:17] VITALS: BP 109/52; TEMP 97.8; O2SAT 97
[2023-06-13] MEDS: traMADol 50 MG TAB PO PRN (16:25)
[2023-06-13] MEDS: SIMETHICONE 80MG CHEW TAB PO PRN (16:26)
[2023-06-13] MEDS ORDERED: LORazepam 2 MG TAB PO PRN (17:30)
[2023-06-13 17:37] VITALS: BP 116/54; TEMP 98.6; O2SAT 99
[2023-06-13 18:55] VITALS: BP 136/65; TEMP 98.1; O2SAT 97
[2023-06-13] MEDS: SYMBICORT 160/4.5MCG INHALER 6GM INH SCH (19:26)
[2023-06-13] MEDS: THIAMINE 100 MG TAB PO SCH (19:42)
[2023-06-13] MEDS: CARVedilol 3.125 MG TAB PO SCH (19:42)
[2023-06-13] MEDS: MORPHINE 2 MG/ML 1ML VIAL IV PRN (19:42)
[2023-06-13 19:44] VITALS: BP 106/55; TEMP 98.7; O2SAT 96
[2023-06-13 20:00] VITALS: BP 101/55; TEMP 97.6; O2SAT 97
[2023-06-13] MEDS: oxyCODONE 5MG TAB PO STA (21:50)
[2023-06-14] VITALS (8 sets, daily range): BP systolic 98–146; BP diastolic 53–82; TEMP 97.7–98.8; O2SAT 92–99
[2023-06-14 05:48] LABS: HEMATOCRIT 27.9 % (42.0-52.0); HEMOGLOBIN 9.5 g/dl (13.5-17.5); MEAN CORPUSCULAR HEMOGLOBIN 40.4 pg (27.0-33.0); MEAN CORPUSCULAR HGB CONC 34.1 g/dl (32.0-36.5); RED BLOOD COUNT 2.35 10^6/uL (4.30-6.10); WHITE BLOOD COUNT 10.2 10^3/uL (4.0-10.0)
[2023-06-14 05:49] LABS: MEAN CORPUSCULAR VOLUME 118.7 fl (80.0-96.0)
[2023-06-14 05:50] LABS: PLATELET COUNT, AUTOMATED 84 10^3/uL (150-450)
[2023-06-14 06:25] LABS: ALBUMIN 1.5 G/DL (3.2-5.2); CALCIUM LEVEL 8.1 MG/DL (8.3-10.6); CREATININE FOR GFR 1.61 MG/DL (0.70-1.30); GLOMERULAR FILTRATION RATE 45.9 (>49); MAGNESIUM LEVEL 1.9 MG/DL (1.8-2.4); POTASSIUM SERUM 4.4 MMOL/L (3.5-5.1); TOTAL PROTEIN 5.5 G/DL (5.7-8.2)
[2023-06-14] MEDS: PANTOPRAZOLE 20 MG TAB PO SCH (07:54)
[2023-06-14] MEDS: oxyCODONE 5MG TAB PO PRN ×2 (12:27→23:59)
[2023-06-14] MEDS: PENTOXIFYLLINE 400MG TAB PO SCH (20:54)
[2023-06-14] MEDS ORDERED: oxyCODONE 5MG TAB PO PRN (23:35)
[2023-06-15] VITALS (11 sets, daily range): BP systolic 111–138; BP diastolic 2–95; TEMP 97.3–98.2; O2SAT 95–98
[2023-06-15 06:33] LABS: BASO % 0.4 % (0.0-1.0); EOS # 0.1 10^3/uL (0.0-0.5); EOS % 0.8 % (0.0-3.0); HEMATOCRIT 24.8 % (42.0-52.0); HEMOGLOBIN 8.8 g/dl (13.5-17.5); LYMPH # 1.4 10^3/uL (1.5-5.0); LYMPH % 14.4 % (24.0-44.0); MEAN CORPUSCULAR HEMOGLOBIN 40.6 pg (27.0-33.0); MEAN CORPUSCULAR HGB CONC 35.5 g/dl (32.0-36.5); MONO # 1.5 10^3/uL (0.0-0.8); MONO % 15.9 % (2.0-8.0); NEUTROPHILS # 6.2 10^3/uL (1.5-8.5); NEUTROPHILS % 65.1 % (36.0-66.0); RED BLOOD COUNT 2.17 10^6/uL (4.30-6.10); WHITE BLOOD COUNT 9.5 10^3/uL (4.0-10.0)
[2023-06-15 06:41] LABS: MEAN CORPUSCULAR VOLUME 114.3 fl (80.0-96.0)
[2023-06-15 06:42] LABS: PLATELET COUNT, AUTOMATED 78 10^3/uL (150-450)
[2023-06-15] MEDS: ALBUTEROL 90 MCG/ACT 8GM HFA INHALER INH PRN (07:32)
[2023-06-15 07:54] LABS: ALBUMIN 1.8 G/DL (3.2-5.2); BILIRUBIN,TOTAL 21.4 MG/DL (0.3-1.2); CALCIUM LEVEL 7.8 MG/DL (8.3-10.6); CREATININE FOR GFR 1.41 MG/DL (0.70-1.30); GLOMERULAR FILTRATION RATE 53.5 (>49); MAGNESIUM LEVEL 2.2 MG/DL (1.8-2.4); POTASSIUM SERUM 3.4 MMOL/L (3.5-5.1); TOTAL PROTEIN 5.5 G/DL (5.7-8.2)
[2023-06-15] MEDS: POTASSIUM CHLORIDE 10MEQ SR TABLET PO ONE ×2 (08:26→12:36)
[2023-06-15] MEDS: MIDODRINE 5 MG TAB PO SCH (08:27)
[2023-06-15 08:52] LABS: BILIRUBIN,DIRECT 14.9 MG/DL (<0.4)
[2023-06-15 10:05] LABS: INR 1.84; PROTHROMBIN TIME 20.6 SECONDS (12.5-14.5)
[2023-06-16] VITALS (9 sets, daily range): BP systolic 109–138; BP diastolic 56–110; TEMP 97.3–98.4; O2SAT 94–99
[2023-06-16] MEDS: SIMETHICONE 80MG CHEW TAB PO PRN (04:35)
[2023-06-16] MEDS ORDERED: ACETAMINOPHEN 500 MG TAB PO PRN (05:35)
[2023-06-16] MEDS: ACETAMINOPHEN 500 MG TAB PO PRN (05:56)
[2023-06-16 06:27] LABS: BASO # 0.1 10^3/uL (0.0-0.2); BASO % 0.5 % (0.0-1.0); EOS # 0.1 10^3/uL (0.0-0.5); EOS % 0.5 % (0.0-3.0); HEMATOCRIT 23.5 % (42.0-52.0); HEMOGLOBIN 8.4 g/dl (13.5-17.5); LYMPH # 1.1 10^3/uL (1.5-5.0); LYMPH % 10.6 % (24.0-44.0); MEAN CORPUSCULAR HEMOGLOBIN 40.6 pg (27.0-33.0); MEAN CORPUSCULAR HGB CONC 35.7 g/dl (32.0-36.5); MEAN CORPUSCULAR VOLUME 113.5 fl (80.0-96.0); MONO # 1.4 10^3/uL (0.0-0.8); MONO % 13.7 % (2.0-8.0); NEUTROPHILS # 7.3 10^3/uL (1.5-8.5); NEUTROPHILS % 70.4 % (36.0-66.0); RED BLOOD COUNT 2.07 10^6/uL (4.30-6.10); WHITE BLOOD COUNT 10.3 10^3/uL (4.0-10.0)
[2023-06-16 06:32] LABS: PLATELET COUNT, AUTOMATED 62 10^3/uL (150-450)
[2023-06-16 06:57] LABS: ALBUMIN 2.1 G/DL (3.2-5.2); ALKALINE PHOSPHATASE 89 U/L (46-116); ALT/SGPT 40 U/L (7.0-40); AST/SGOT 60 U/L (<34); BILIRUBIN,TOTAL 19.4 MG/DL (0.3-1.2); BLOOD UREA NITROGEN 38 MG/DL (9-23); CALCIUM LEVEL 7.9 MG/DL (8.3-10.6); CARBON DIOXIDE LEVEL 25 MMOL/L (20-31); CHLORIDE LEVEL 101 MMOL/L (98-107); CREATININE FOR GFR 0.94 MG/DL (0.70-1.30); GLOMERULAR FILTRATION RATE > 60.0 (>49); GLUCOSE, FASTING 87 MG/DL (74-106); MAGNESIUM LEVEL 2.3 MG/DL (1.8-2.4); POTASSIUM SERUM 3.5 MMOL/L (3.5-5.1); SODIUM LEVEL 132 MMOL/L (136-145); TOTAL PROTEIN 5.4 G/DL (5.7-8.2)
[2023-06-16 10:24] LABS: INR 1.73; PROTHROMBIN TIME 19.7 SECONDS (12.5-14.5)
[2023-06-17] VITALS (7 sets, daily range): BP systolic 110–136; BP diastolic 55–80; TEMP 97.7–98.2; O2SAT 91–98
[2023-06-17 06:10] LABS: BASO % 0.3 % (0.0-1.0); EOS # 0.1 10^3/uL (0.0-0.5); EOS % 0.4 % (0.0-3.0); HEMATOCRIT 24.6 % (42.0-52.0); HEMOGLOBIN 8.8 g/dl (13.5-17.5); LYMPH # 1.4 10^3/uL (1.5-5.0); LYMPH % 10.9 % (24.0-44.0); MEAN CORPUSCULAR HEMOGLOBIN 40.9 pg (27.0-33.0); MEAN CORPUSCULAR HGB CONC 35.8 g/dl (32.0-36.5); MONO # 1.8 10^3/uL (0.0-0.8); MONO % 14.7 % (2.0-8.0); NEUTROPHILS # 8.7 10^3/uL (1.5-8.5); NEUTROPHILS % 70.5 % (36.0-66.0); RED BLOOD COUNT 2.15 10^6/uL (4.30-6.10); WHITE BLOOD COUNT 12.4 10^3/uL (4.0-10.0)
[2023-06-17 06:15] LABS: MEAN CORPUSCULAR VOLUME 114.4 fl (80.0-96.0); PLATELET COUNT, AUTOMATED 59 10^3/uL (150-450)
[2023-06-17 06:40] LABS: ALBUMIN 2.1 G/DL (3.2-5.2); ALKALINE PHOSPHATASE 95 U/L (46-116); ALT/SGPT 41 U/L (7.0-40); AST/SGOT 80 U/L (<34); BILIRUBIN,TOTAL 20.1 MG/DL (0.3-1.2); BLOOD UREA NITROGEN 29 MG/DL (9-23); CARBON DIOXIDE LEVEL 25 MMOL/L (20-31); CHLORIDE LEVEL 100 MMOL/L (98-107); CREATININE FOR GFR 0.78 MG/DL (0.70-1.30); GLOMERULAR FILTRATION RATE > 60.0 (>49); GLUCOSE, FASTING 84 MG/DL (74-106); MAGNESIUM LEVEL 2.3 MG/DL (1.8-2.4); POTASSIUM SERUM 3.1 MMOL/L (3.5-5.1); SODIUM LEVEL 130 MMOL/L (136-145); TOTAL PROTEIN 5.6 G/DL (5.7-8.2)
[2023-06-17 08:38] LABS: INR 1.71; PROTHROMBIN TIME 19.5 SECONDS (12.5-14.5)
[2023-06-17] MEDS: SPIRONOLACTONE 25 MG TAB PO SCH (11:34)
[2023-06-17 16:30] LABS: SOURCE, BODY FLUID ASCITES
[2023-06-17 16:31] LABS: APPEARANCE, BODY FLUID CLOUDY (CLEAR); ASCITES FL COLOR YELLOW (COLORLESS)
[2023-06-18] VITALS (8 sets, daily range): BP systolic 94–141; BP diastolic 44–70; TEMP 97.5–98.6; O2SAT 97–99
[2023-06-18 06:02] LABS: HEMATOCRIT 224.5 % (42.0-52.0); HEMOGLOBIN 8.6 g/dl (13.5-17.5); MEAN CORPUSCULAR HEMOGLOBIN 40.2 pg (27.0-33.0); MEAN CORPUSCULAR HGB CONC 35.1 g/dl (32.0-36.5); MEAN CORPUSCULAR VOLUME 114.5 fl (80.0-96.0); RED BLOOD COUNT 2.14 10^6/uL (4.30-6.10); WHITE BLOOD COUNT 11.9 10^3/uL (4.0-10.0)
[2023-06-18 06:04] LABS: PLATELET COUNT, AUTOMATED 56 10^3/uL (150-450)
[2023-06-18 06:33] LABS: ALKALINE PHOSPHATASE 94 U/L (46-116); ALT/SGPT 40 U/L (7.0-40); AST/SGOT 83 U/L (<34); BILIRUBIN,TOTAL 19.7 MG/DL (0.3-1.2); BLOOD UREA NITROGEN 22 MG/DL (9-23); CALCIUM LEVEL 7.9 MG/DL (8.3-10.6); CARBON DIOXIDE LEVEL 24 MMOL/L (20-31); CHLORIDE LEVEL 100 MMOL/L (98-107); GLOMERULAR FILTRATION RATE > 60.0 (>49); GLUCOSE, FASTING 103 MG/DL (74-106); MAGNESIUM LEVEL 2.3 MG/DL (1.8-2.4); POTASSIUM SERUM 2.9 MMOL/L (3.5-5.1); SODIUM LEVEL 129 MMOL/L (136-145); TOTAL PROTEIN 5.5 G/DL (5.7-8.2)
[2023-06-18 06:46] LABS: LYMPHOCYTES 6 % (16-44); MONOCYTES 12 % (0-5); NEUTROPHILS 81 % (28-66); PLATELET ESTIMATE DECREASED (NORMAL)
[2023-06-18 06:47] LABS: ANISOCYTOSIS 2+; POIKILOCYTOSIS 1+
[2023-06-18] MEDS: KCL 10MEQ/100ML SWI (KRUN) 10 MEQ in IV 1 EA IV SCH (06:53)
[2023-06-18] MEDS: POTASSIUM CHLORIDE 10MEQ SR TABLET PO SCH (08:08)
[2023-06-18] MEDS ORDERED: POTASSIUM CHLORIDE 10% LIQ 20MEQ/15ML UDC PO ONE (10:35)
[2023-06-18] MEDS ORDERED: SIMETHICONE 80MG CHEW TAB PO PRN (11:30)
[2023-06-18 13:00] LABS: BLOOD UREA NITROGEN 21 MG/DL (9-23); CALCIUM LEVEL 7.7 MG/DL (8.3-10.6); CARBON DIOXIDE LEVEL 24 MMOL/L (20-31); CHLORIDE LEVEL 101 MMOL/L (98-107); CREATININE FOR GFR 0.78 MG/DL (0.70-1.30); GLOMERULAR FILTRATION RATE > 60.0 (>49); GLUCOSE, FASTING 97 MG/DL (74-106); MAGNESIUM LEVEL 2.2 MG/DL (1.8-2.4); POTASSIUM SERUM 3.3 MMOL/L (3.5-5.1); SODIUM LEVEL 132 MMOL/L (136-145)
[2023-06-18] MEDS: oxyCODONE 5MG TAB PO PRN (16:30)
[2023-06-18] MEDS ORDERED: PILL CUTTER 1 EACH XX PRN (19:00)
[2023-06-18] MEDS: SIMETHICONE 80MG CHEW TAB PO PRN (23:01)
[2023-06-19 02:00] VITALS: BP 110/48; TEMP 98.2; O2SAT 94
[2023-06-19 06:00] VITALS: BP 117/58; TEMP 98.2; O2SAT 94
[2023-06-19 06:23] LABS: HEMATOCRIT 26.4 % (42.0-52.0); HEMOGLOBIN 9.2 g/dl (13.5-17.5); MEAN CORPUSCULAR HEMOGLOBIN 40.5 pg (27.0-33.0); MEAN CORPUSCULAR HGB CONC 34.8 g/dl (32.0-36.5); MEAN CORPUSCULAR VOLUME 116.3 fl (80.0-96.0); PLATELET COUNT, AUTOMATED 55 10^3/uL (150-450); RED BLOOD COUNT 2.27 10^6/uL (4.30-6.10); WHITE BLOOD COUNT 12.2 10^3/uL (4.0-10.0)
[2023-06-19 06:24] LABS: BASO # 0.1 10^3/uL (0.0-0.2); BASO % 0.4 % (0.0-1.0); EOS # 0.1 10^3/uL (0.0-0.5); EOS % 0.4 % (0.0-3.0); LYMPH # 1.2 10^3/uL (1.5-5.0); LYMPH % 9.5 % (24.0-44.0); MONO # 1.4 10^3/uL (0.0-0.8); MONO % 11.3 % (2.0-8.0); NEUTROPHILS # 8.7 10^3/uL (1.5-8.5); NEUTROPHILS % 71.7 % (36.0-66.0)
[2023-06-19 06:54] LABS: ALBUMIN 1.9 G/DL (3.2-5.2); ALKALINE PHOSPHATASE 111 U/L (46-116); ALT/SGPT 39 U/L (7.0-40); AST/SGOT 81 U/L (<34); BLOOD UREA NITROGEN 20 MG/DL (9-23); CALCIUM LEVEL 7.6 MG/DL (8.3-10.6); CARBON DIOXIDE LEVEL 24 MMOL/L (20-31); CHLORIDE LEVEL 101 MMOL/L (98-107); CREATININE FOR GFR 0.78 MG/DL (0.70-1.30); GLOMERULAR FILTRATION RATE > 60.0 (>49); GLUCOSE, FASTING 96 MG/DL (74-106); MAGNESIUM LEVEL 2.2 MG/DL (1.8-2.4); POTASSIUM SERUM 3.2 MMOL/L (3.5-5.1); SODIUM LEVEL 133 MMOL/L (136-145); TOTAL PROTEIN 5.6 G/DL (5.7-8.2)
[2023-06-19 10:00] VITALS: BP 113/52; TEMP 97.9; O2SAT 96
[2023-06-19] MEDS ORDERED: POTASSIUM CHLORIDE 10% LIQ 20MEQ/15ML UDC PO SCH (11:00)
[2023-06-19] MEDS: POTASSIUM CHLORIDE 10MEQ SR TABLET PO ONE ×2 (12:33→14:15)
[2023-06-19 14:00] VITALS: BP 111/64; TEMP 97.7; O2SAT 96
[2023-06-19 18:00] VITALS: BP 114/56; TEMP 97.5; O2SAT 100
[2023-06-19 22:00] VITALS: BP 100/50; TEMP 97.9; O2SAT 98
[2023-06-20] VITALS (7 sets, daily range): BP systolic 106–127; BP diastolic 48–74; TEMP 97.5–98.1; O2SAT 94–99
[2023-06-20 06:29] LABS: ALBUMIN 1.8 G/DL (3.2-5.2); ALKALINE PHOSPHATASE 105 U/L (46-116); ALT/SGPT 40 U/L (7.0-40); AST/SGOT 73 U/L (<34); BLOOD UREA NITROGEN 22 MG/DL (9-23); CALCIUM LEVEL 7.8 MG/DL (8.3-10.6); CARBON DIOXIDE LEVEL 22 MMOL/L (20-31); CHLORIDE LEVEL 102 MMOL/L (98-107); CREATININE FOR GFR 0.77 MG/DL (0.70-1.30); GLOMERULAR FILTRATION RATE > 60.0 (>49); GLUCOSE, FASTING 105 MG/DL (74-106); HEMATOCRIT 25.5 % (42.0-52.0); HEMOGLOBIN 9.1 g/dl (13.5-17.5); MAGNESIUM LEVEL 2.4 MG/DL (1.8-2.4); POTASSIUM SERUM 3.8 MMOL/L (3.5-5.1); RED BLOOD COUNT 2.18 10^6/uL (4.30-6.10); SODIUM LEVEL 129 MMOL/L (136-145); TOTAL PROTEIN 5.4 G/DL (5.7-8.2); WHITE BLOOD COUNT 11.8 10^3/uL (4.0-10.0)
[2023-06-20 06:30] LABS: MEAN CORPUSCULAR HEMOGLOBIN 41.7 pg (27.0-33.0); MEAN CORPUSCULAR HGB CONC 35.7 g/dl (32.0-36.5)
[2023-06-20 06:33] LABS: EOS % 0.4 % (0.0-3.0); MONO % 10.5 % (2.0-8.0); NEUTROPHILS % 75.1 % (36.0-66.0); PLATELET COUNT, AUTOMATED 65 10^3/uL (150-450)
[2023-06-20 06:34] LABS: BASO # 0.1 10^3/uL (0.0-0.2); BASO % 0.4 % (0.0-1.0); EOS # 0.1 10^3/uL (0.0-0.5); LYMPH # 1.1 10^3/uL (1.5-5.0); MONO # 1.2 10^3/uL (0.0-0.8); NEUTROPHILS # 8.9 10^3/uL (1.5-8.5)
[2023-06-20] MEDS: SODIUM CHLORIDE 1 GM TAB PO SCH (08:05)
[2023-06-20] MEDS: BACTRIM 160MG/800MG DS TAB PO SCH (08:05)
[2023-06-20 08:17] LABS: PROCALCITONIN 1.15 ng/ml
[2023-06-20 09:15] LABS: INR 1.46; PARTIAL THROMBOPLASTIN TIME 37.9 SECONDS (24.8-34.2); PROTHROMBIN TIME 17.3 SECONDS (12.5-14.5)
[2023-06-20] MEDS ORDERED: PENT400T47 PO (09:51)
[2023-06-20] MEDS ORDERED: BACTDSTA PO (09:52)
[2023-06-20] MEDS ORDERED: ALDA25TA2 PO (09:53)
[2023-06-20] MEDS ORDERED: MIDO5TA PO (09:53)
[2023-06-20] MEDS ORDERED: K-TA1TAB PO (10:23)
[2023-06-20] MEDS ORDERED: SIME1CAP3 PO (10:26)
[2023-06-20] MEDS: BISACODYL 10MG SUPP PR ONE (12:12)
[2023-06-20] MEDS ORDERED: LevoFLOXacin 750 MG TABLET PO SCH (13:15)
[2023-06-20] MEDS ORDERED: BACI1CAP PO (13:18)
[2023-06-20] MEDS ORDERED: CIPR-249 PO (13:32)
[2023-06-20] MEDS ORDERED: CEFD300CAP PO (14:23)
[2023-06-20] MEDS ORDERED: CEFDINIR 300 MG CAP (OMNICEF) PO ONE (14:25)
[2023-06-20] MEDS: CEFDINIR 300 MG CAP (OMNICEF) PO SCH (15:36)
[2023-06-21 01:20] VITALS: BP 105/54; TEMP 97.7; O2SAT 96
[2023-06-21 04:50] VITALS: BP 107/53; TEMP 97.9; O2SAT 98
[2023-06-21] MEDS ORDERED: CIPROFLOXACIN 500MG TABLET PO SCH (06:00)
[2023-06-21 06:08] LABS: BASO # 0.1 10^3/uL (0.0-0.2); BASO % 0.4 % (0.0-1.0); EOS # 0.1 10^3/uL (0.0-0.5); EOS % 0.4 % (0.0-3.0); HEMATOCRIT 26.7 % (42.0-52.0); HEMOGLOBIN 9.5 g/dl (13.5-17.5); LYMPH # 0.5 10^3/uL (1.5-5.0); LYMPH % 3.1 % (24.0-44.0); MEAN CORPUSCULAR HEMOGLOBIN 42.4 pg (27.0-33.0); MEAN CORPUSCULAR HGB CONC 35.6 g/dl (32.0-36.5); MONO # 1.1 10^3/uL (0.0-0.8); MONO % 6.3 % (2.0-8.0); NEUTROPHILS % 87.1 % (36.0-66.0); RED BLOOD COUNT 2.24 10^6/uL (4.30-6.10); WHITE BLOOD COUNT 17.2 10^3/uL (4.0-10.0)
[2023-06-21 06:33] LABS: MEAN CORPUSCULAR VOLUME 119.2 fl (80.0-96.0); PLATELET COUNT, AUTOMATED 69 10^3/uL (150-450)
[2023-06-21 06:41] LABS: ALBUMIN 1.9 G/DL (3.2-5.2); ALKALINE PHOSPHATASE 123 U/L (46-116); ALT/SGPT 41 U/L (7.0-40); AST/SGOT 80 U/L (<34); BILIRUBIN,TOTAL 24.3 MG/DL (0.3-1.2); BLOOD UREA NITROGEN 24 MG/DL (9-23); CALCIUM LEVEL 7.8 MG/DL (8.3-10.6); CARBON DIOXIDE LEVEL 22 MMOL/L (20-31); CHLORIDE LEVEL 101 MMOL/L (98-107); CREATININE FOR GFR 0.86 MG/DL (0.70-1.30); GLOMERULAR FILTRATION RATE > 60.0 (>49); GLUCOSE, FASTING 89 MG/DL (74-106); MAGNESIUM LEVEL 2.4 MG/DL (1.8-2.4); POTASSIUM SERUM 4.3 MMOL/L (3.5-5.1); SODIUM LEVEL 128 MMOL/L (136-145); TOTAL PROTEIN 5.8 G/DL (5.7-8.2)
[2023-06-21 10:00] VITALS: BP 128/53; TEMP 98.1; O2SAT 97
[2023-06-21 13:41] VITALS: BP 144/58
[2023-06-21 14:00] VITALS: BP 145/78; TEMP 97.7; O2SAT 97
[2023-06-21] MEDS ORDERED: OXYC-517 PO (18:11)
== END 2023-06-21 16:33 | disposition home or self-care (01) | DRG 432 ==
LOC: M ED 04:55 → M ED INP 11:47 → ENRESERV 12:51 → M PCU 13:55 → M MSPAV 06-14 23:07
PROVIDERS: ADMIT Internal Medicine; ATTEND General Practice
PROC: 30233J1 Transfusion of Nonautologous Serum Albumin into Peripheral Vein, Percutaneous Approach (ICD-10-PCS; 2023-06-13)
PROC: 0W9G3ZX Drainage of Peritoneal Cavity, Percutaneous Approach, Diagnostic (ICD-10-PCS; principal; 2023-06-13 14:00)
PROC: 0W9G3ZZ Drainage of Peritoneal Cavity, Percutaneous Approach (ICD-10-PCS; 2023-06-17)
DX: K70.31 Alcoholic cirrhosis of liver with ascites (principal); K76.7 Hepatorenal syndrome; K65.2 Spontaneous bacterial peritonitis; N17.9 Acute kidney failure, unspecified; E87.1 Hypo-osmolality and hyponatremia; K76.6 Portal hypertension; I50.32 Chronic diastolic (congestive) heart failure; I48.20 Chronic atrial fibrillation, unspecified; D68.4 Acquired coagulation factor deficiency; I11.0 Hypertensive heart disease with heart failure; R74.01 Elevation of levels of liver transaminase levels; K21.9 Gastro-esophageal reflux disease without esophagitis; E78.5 Hyperlipidemia, unspecified; D53.9 Nutritional anemia, unspecified; F10.20 Alcohol dependence, uncomplicated; D69.6 Thrombocytopenia, unspecified; E88.09 Other disorders of plasma-protein metabolism, not elsewhere classified; D72.0 Genetic anomalies of leukocytes; R19.7 Diarrhea, unspecified; Z66 Do not resuscitate; K82.8 Other specified diseases of gallbladder; K70.11 Alcoholic hepatitis with ascites; E87.6 Hypokalemia; M54.50 Low back pain, unspecified; G89.29 Other chronic pain; I27.20 Pulmonary hypertension, unspecified; J44.9 Chronic obstructive pulmonary disease, unspecified; G47.33 Obstructive sleep apnea (adult) (pediatric); Z95.0 Presence of cardiac pacemaker; B96.20 Unspecified Escherichia coli [E. coli] as the cause of diseases classified elsewhere; Z86.73 Personal history of transient ischemic attack (TIA), and cerebral infarction without residual deficits; Z98.84 Bariatric surgery status; Z87.891 Personal history of nicotine dependence; Z79.82 Long term (current) use of aspirin; Z79.899 Other long term (current) drug therapy

== ENCOUNTER → 2023-06-29 | Outpatient (CLI) | payer MEDICARE, MEDICAID ==
[~2023-06-29] MED LIST changes: +ACET-683 PO; +ALBU8.5H INH; +BACI1CAP PO; +BACTDSTA PO; +BUDE10.2 INH; +CARV3.12 PO; +CEFD300CAP PO; +CIPR-249 PO; +EPLE25TA PO; +HYDR-3363 PO; +K-TA1TAB PO; +MIDO5TA PO; +NYST-38 PO; +OXYC-517 PO; +PENT400T47 PO; +SIME1CAP3 PO
[2023-06-29 12:40] VITALS: BP 147/83; O2SAT 99
[2023-06-29 12:59] VITALS: BP 160/95; TEMP 98; O2SAT 98
[2023-06-29 13:14] VITALS: BP 166/75; TEMP 97.9; O2SAT 99
[2023-06-29 13:21] VITALS: BP 163/77; TEMP 98; O2SAT 99
== END ==
LOC: M IRPRO 11:24
PROVIDERS: ATTEND Internal Medicine Gastroenterology
DX: K70.31 Alcoholic cirrhosis of liver with ascites (principal); D63.8 Anemia in other chronic diseases classified elsewhere
CPT/HCPCS: 36415; 49083; 80053; 85025; 96365; P9047

== ENCOUNTER → 2023-06-29 | Outpatient (CLI) | payer MEDICARE, MEDICAID ==
[~2023-06-29] MED LIST changes: -HYDR-3363 PO; -NYST-38 PO
[2023-06-29 12:45] LABS: BASO # 0.1 10^3/uL (0.0-0.2); BASO % 0.6 % (0.0-1.0); EOS # 0.1 10^3/uL (0.0-0.5); EOS % 0.9 % (0.0-3.0); HEMATOCRIT 29.7 % (42.0-52.0); LYMPH # 1.4 10^3/uL (1.5-5.0); LYMPH % 16.8 % (24.0-44.0); MEAN CORPUSCULAR HEMOGLOBIN 40.2 pg (27.0-33.0); MEAN CORPUSCULAR HGB CONC 33.7 g/dl (32.0-36.5); MONO # 0.7 10^3/uL (0.0-0.8); MONO % 8.9 % (2.0-8.0); NEUTROPHILS # 5.9 10^3/uL (1.5-8.5); NEUTROPHILS % 71.2 % (36.0-66.0); PLATELET COUNT, AUTOMATED 103 10^3/uL (150-450); RED BLOOD COUNT 2.49 10^6/uL (4.30-6.10); WHITE BLOOD COUNT 8.2 10^3/uL (4.0-10.0)
[2023-06-29 12:49] LABS: MEAN CORPUSCULAR VOLUME 119.3 fl (80.0-96.0)
[2023-06-29 13:18] LABS: ANISOCYTOSIS 2+; PLATELET ESTIMATE DECREASED (NORMAL)
[2023-06-29 13:19] LABS: TEAR DROP CELLS 1+
[2023-06-29 13:20] LABS: MICROCYTOSIS 1+
[2023-06-29 13:34] LABS: ALBUMIN 1.7 G/DL (3.2-5.2); ALKALINE PHOSPHATASE 147 U/L (46-116); ALT/SGPT 81 U/L (7.0-40); AST/SGOT 121 U/L (<34); BILIRUBIN,TOTAL 19.5 MG/DL (0.3-1.2); BLOOD UREA NITROGEN 15 MG/DL (9-23); CALCIUM LEVEL 8.1 MG/DL (8.3-10.6); CARBON DIOXIDE LEVEL 19 MMOL/L (20-31); CHLORIDE LEVEL 102 MMOL/L (98-107); CREATININE FOR GFR 0.63 MG/DL (0.70-1.30); GLOMERULAR FILTRATION RATE > 60.0 (>49); GLUCOSE, FASTING 97 MG/DL (74-106); POTASSIUM SERUM 5.2 MMOL/L (3.5-5.1); SODIUM LEVEL 128 MMOL/L (136-145); TOTAL PROTEIN 6.2 G/DL (5.7-8.2)
== END ==
LOC: M LAB 11:31
PROVIDERS: ATTEND Physician Assistant Medical
DX: K70.31 Alcoholic cirrhosis of liver with ascites (principal); D63.8 Anemia in other chronic diseases classified elsewhere

== ENCOUNTER → 2023-07-05 | Outpatient (CLI) | payer MEDICARE, MEDICAID ==
[~2023-07-05] MED LIST changes: +HYDR-3363 PO; +NYST-38 PO
[2023-07-05 13:58] LABS: BASO % 0.3 % (0.0-1.0); EOS # 0.1 10^3/uL (0.0-0.5); EOS % 0.7 % (0.0-3.0); HEMATOCRIT 26.9 % (42.0-52.0); HEMOGLOBIN 9.4 g/dl (13.5-17.5); LYMPH # 1.7 10^3/uL (1.5-5.0); LYMPH % 18.2 % (24.0-44.0); MEAN CORPUSCULAR HEMOGLOBIN 40.3 pg (27.0-33.0); MEAN CORPUSCULAR HGB CONC 34.9 g/dl (32.0-36.5); MONO % 10.7 % (2.0-8.0); NEUTROPHILS # 6.2 10^3/uL (1.5-8.5); NEUTROPHILS % 68.3 % (36.0-66.0); RED BLOOD COUNT 2.33 10^6/uL (4.30-6.10); WHITE BLOOD COUNT 9.1 10^3/uL (4.0-10.0)
[2023-07-05 14:17] LABS: MEAN CORPUSCULAR VOLUME 115.5 fl (80.0-96.0); PLATELET COUNT, AUTOMATED 86 10^3/uL (150-450)
[2023-07-05 14:19] LABS: ALBUMIN 1.8 G/DL (3.2-5.2); ALKALINE PHOSPHATASE 150 U/L (46-116); ALT/SGPT 83 U/L (7.0-40); AST/SGOT 96 U/L (<34); BILIRUBIN,TOTAL 14.6 MG/DL (0.3-1.2); BLOOD UREA NITROGEN 12 MG/DL (9-23); CALCIUM LEVEL 8.5 MG/DL (8.3-10.6); CARBON DIOXIDE LEVEL 21 MMOL/L (20-31); CHLORIDE LEVEL 104 MMOL/L (98-107); CREATININE FOR GFR 0.64 MG/DL (0.70-1.30); GLOMERULAR FILTRATION RATE > 60.0 (>49); GLUCOSE, FASTING 109 MG/DL (74-106); POTASSIUM SERUM 4.6 MMOL/L (3.5-5.1); SODIUM LEVEL 132 MMOL/L (136-145); TOTAL PROTEIN 6.1 G/DL (5.7-8.2)
== END ==
LOC: M LAB 12:41
PROVIDERS: ATTEND Physician Assistant Medical
DX: B37.0 Candidal stomatitis (principal); I50.32 Chronic diastolic (congestive) heart failure; K70.31 Alcoholic cirrhosis of liver with ascites

== ENCOUNTER → 2023-07-05 | Outpatient (CLI) | payer MEDICARE, MEDICAID ==
[2023-07-05 13:41] VITALS: BP 180/97; TEMP 98; O2SAT 98
[2023-07-05 13:49] VITALS: BP 174/95; TEMP 97.9; O2SAT 98
[2023-07-05 13:58] VITALS: BP 167/96; TEMP 98.1; O2SAT 98
[2023-07-05 14:06] VITALS: BP 172/98; TEMP 98; O2SAT 100
[2023-07-05 14:07] VITALS: BP 172/99; O2SAT 100
== END ==
LOC: M IRPRO 12:34
PROVIDERS: ATTEND Internal Medicine Gastroenterology
DX: K70.31 Alcoholic cirrhosis of liver with ascites (principal); B37.0 Candidal stomatitis; I50.32 Chronic diastolic (congestive) heart failure
CPT/HCPCS: 49083; 80053; 85025; 85049; 85055; 96365; P9047

== ENCOUNTER → 2023-07-12 | Outpatient (CLI) | payer MEDICARE, MEDICAID ==
[2023-07-12 10:08] LABS: BASO % 0.5 % (0.0-1.0); EOS # 0.1 10^3/uL (0.0-0.5); HEMATOCRIT 27.3 % (42.0-52.0); HEMOGLOBIN 9.3 g/dl (13.5-17.5); LYMPH # 1.4 10^3/uL (1.5-5.0); LYMPH % 22.2 % (24.0-44.0); MEAN CORPUSCULAR HEMOGLOBIN 39.7 pg (27.0-33.0); MEAN CORPUSCULAR HGB CONC 34.1 g/dl (32.0-36.5); MONO # 0.8 10^3/uL (0.0-0.8); MONO % 13.6 % (2.0-8.0); NEUTROPHILS # 3.8 10^3/uL (1.5-8.5); NEUTROPHILS % 61.7 % (36.0-66.0); RED BLOOD COUNT 2.34 10^6/uL (4.30-6.10); WHITE BLOOD COUNT 6.2 10^3/uL (4.0-10.0)
[2023-07-12 10:18] LABS: MEAN CORPUSCULAR VOLUME 116.7 fl (80.0-96.0); PLATELET COUNT, AUTOMATED 79 10^3/uL (150-450)
[2023-07-12 10:37] LABS: ALBUMIN 2.1 G/DL (3.2-5.2); ALKALINE PHOSPHATASE 152 U/L (46-116); ALT/SGPT 62 U/L (7.0-40); AST/SGOT 74 U/L (<34); BILIRUBIN,TOTAL 10.9 MG/DL (0.3-1.2); BLOOD UREA NITROGEN 9 MG/DL (9-23); CALCIUM LEVEL 8.5 MG/DL (8.3-10.6); CARBON DIOXIDE LEVEL 23 MMOL/L (20-31); CHLORIDE LEVEL 101 MMOL/L (98-107); CREATININE FOR GFR 0.72 MG/DL (0.70-1.30); GLOMERULAR FILTRATION RATE > 60.0 (>49); GLUCOSE, FASTING 102 MG/DL (74-106); POTASSIUM SERUM 4.4 MMOL/L (3.5-5.1); SODIUM LEVEL 129 MMOL/L (136-145); TOTAL PROTEIN 5.7 G/DL (5.7-8.2)
[2023-07-12 12:47] LABS: PLATELET ESTIMATE MARKED DECREASE (NORMAL)
[2023-07-12 12:48] LABS: ANISOCYTOSIS 2+; BURR CELLS 1+; HYPOCHROMASIA 2+
[2023-07-12 12:54] LABS: POIKILOCYTOSIS 2+
== END ==
LOC: M LAB 09:11
PROVIDERS: ATTEND Physician Assistant Medical
DX: B37.0 Candidal stomatitis (principal); I50.32 Chronic diastolic (congestive) heart failure; K70.31 Alcoholic cirrhosis of liver with ascites

== ENCOUNTER → 2023-07-12 | Outpatient (CLI) | payer MEDICARE, MEDICAID ==
[2023-07-12 10:06] VITALS: BP 121/66; TEMP 98; O2SAT 98
[2023-07-12 10:14] VITALS: BP 139/82; TEMP 97.3; O2SAT 98
[2023-07-12 10:23] VITALS: BP 121/72; TEMP 97.8; O2SAT 100
[2023-07-12 10:29] VITALS: BP 123/68; TEMP 97.6; O2SAT 100
[2023-07-12 10:43] VITALS: BP 138/71; TEMP 97.8; O2SAT 100
== END ==
LOC: M IRPRO 09:01
PROVIDERS: ATTEND Internal Medicine Gastroenterology
DX: K70.31 Alcoholic cirrhosis of liver with ascites (principal); B37.0 Candidal stomatitis; I50.32 Chronic diastolic (congestive) heart failure
CPT/HCPCS: 49083; 80053; 85025; 85049; 85055; 96365; P9047

== ENCOUNTER → 2023-07-19 | Outpatient (CLI) | payer MEDICARE, MEDICAID ==
[~2023-07-19] MED LIST changes: -EPLE25TA PO; +EPLE25TA2 PO; -POTA10CA60 PO; +POTA10CA70 PO
== END ==
LOC: M LAB 09:11
PROVIDERS: ATTEND Family Medicine
DX: B37.0 Candidal stomatitis (principal); I50.32 Chronic diastolic (congestive) heart failure; K70.31 Alcoholic cirrhosis of liver with ascites

== ENCOUNTER → 2023-07-19 | Outpatient (CLI) | payer MEDICARE, MEDICAID ==
[~2023-07-19] MED LIST changes: +EPLE25TA PO; -EPLE25TA2 PO; +POTA10CA60 PO; -POTA10CA70 PO
[2023-07-19 09:40] VITALS: TEMP 97.6
[2023-07-19 10:09] LABS: BASO % 0.7 % (0.0-1.0); EOS # 0.1 10^3/uL (0.0-0.5); EOS % 1.7 % (0.0-3.0); HEMATOCRIT 30.3 % (42.0-52.0); HEMOGLOBIN 10.4 g/dl (13.5-17.5); LYMPH # 1.3 10^3/uL (1.5-5.0); LYMPH % 23.1 % (24.0-44.0); MEAN CORPUSCULAR HEMOGLOBIN 39.5 pg (27.0-33.0); MEAN CORPUSCULAR HGB CONC 34.3 g/dl (32.0-36.5); MONO # 0.8 10^3/uL (0.0-0.8); MONO % 14.1 % (2.0-8.0); NEUTROPHILS # 3.4 10^3/uL (1.5-8.5); NEUTROPHILS % 59.4 % (36.0-66.0); RED BLOOD COUNT 2.63 10^6/uL (4.30-6.10); WHITE BLOOD COUNT 5.8 10^3/uL (4.0-10.0)
[2023-07-19 10:10] LABS: MEAN CORPUSCULAR VOLUME 115.2 fl (80.0-96.0); PLATELET COUNT, AUTOMATED 93 10^3/uL (150-450)
[2023-07-19 10:32] VITALS: BP 124/75; O2SAT 97
[2023-07-19 10:32] LABS: INR 1.6; PROTHROMBIN TIME 18.5 SECONDS (12.5-14.5)
[2023-07-19 10:35] LABS: ALBUMIN 2.3 G/DL (3.2-5.2); ALKALINE PHOSPHATASE 157 U/L (46-116); ALT/SGPT 65 U/L (7.0-40); AST/SGOT 84 U/L (<34); BILIRUBIN,TOTAL 11.9 MG/DL (0.3-1.2); BLOOD UREA NITROGEN 12 MG/DL (9-23); CALCIUM LEVEL 8.6 MG/DL (8.3-10.6); CARBON DIOXIDE LEVEL 22 MMOL/L (20-31); CHLORIDE LEVEL 103 MMOL/L (98-107); CREATININE FOR GFR 0.79 MG/DL (0.70-1.30); GLOMERULAR FILTRATION RATE > 60.0 (>49); GLUCOSE, FASTING 100 MG/DL (74-106); POTASSIUM SERUM 4.5 MMOL/L (3.5-5.1); SODIUM LEVEL 133 MMOL/L (136-145); TOTAL PROTEIN 6.1 G/DL (5.7-8.2)
[2023-07-19 10:43] VITALS: BP 136/78; O2SAT 98
[2023-07-19 10:51] VITALS: BP 143/70; O2SAT 100
[2023-07-19 11:02] VITALS: BP 116/62; O2SAT 100
== END ==
LOC: M IRPRO 09:06
PROVIDERS: ATTEND Internal Medicine Gastroenterology
DX: R18.8 Other ascites (principal); K74.60 Unspecified cirrhosis of liver
CPT/HCPCS: 49083; 80053; 85025; 85049; 85055; 85610; 96365; P9047

== ENCOUNTER → 2023-07-26 | Outpatient (CLI) | payer MEDICARE, MEDICAID ==
[~2023-07-26] MED LIST changes: -EPLE25TA PO; +EPLE25TA2 PO; -POTA10CA60 PO; +POTA10CA70 PO
== END ==
LOC: M LAB 07:39
PROVIDERS: ATTEND Physician Assistant Medical
DX: B37.0 Candidal stomatitis (principal); I50.32 Chronic diastolic (congestive) heart failure; K70.31 Alcoholic cirrhosis of liver with ascites

== ENCOUNTER → 2023-07-26 | Outpatient (CLI) | payer MEDICARE, MEDICAID ==
[2023-07-26 07:46] VITALS: TEMP 98.6
[2023-07-26 08:27] LABS: BASO % 0.7 % (0.0-1.0); EOS # 0.1 10^3/uL (0.0-0.5); EOS % 2.2 % (0.0-3.0); HEMATOCRIT 27.7 % (42.0-52.0); HEMOGLOBIN 9.6 g/dl (13.5-17.5); LYMPH # 1.3 10^3/uL (1.5-5.0); LYMPH % 23.3 % (24.0-44.0); MEAN CORPUSCULAR HEMOGLOBIN 38.9 pg (27.0-33.0); MEAN CORPUSCULAR HGB CONC 34.7 g/dl (32.0-36.5); MEAN CORPUSCULAR VOLUME 112.1 fl (80.0-96.0); MONO # 0.8 10^3/uL (0.0-0.8); MONO % 14.6 % (2.0-8.0); NEUTROPHILS # 3.2 10^3/uL (1.5-8.5); NEUTROPHILS % 58.6 % (36.0-66.0); RED BLOOD COUNT 2.47 10^6/uL (4.30-6.10); WHITE BLOOD COUNT 5.4 10^3/uL (4.0-10.0)
[2023-07-26 08:29] LABS: PLATELET COUNT, AUTOMATED 69 10^3/uL (150-450)
[2023-07-26 08:53] VITALS: BP 129/72; O2SAT 98
[2023-07-26 08:54] LABS: ALBUMIN 2.1 G/DL (3.2-5.2); ALKALINE PHOSPHATASE 129 U/L (46-116); ALT/SGPT 57 U/L (7.0-40); AST/SGOT 75 U/L (<34); BILIRUBIN,TOTAL 9.1 MG/DL (0.3-1.2); BLOOD UREA NITROGEN 10 MG/DL (9-23); CARBON DIOXIDE LEVEL 20 MMOL/L (20-31); CHLORIDE LEVEL 105 MMOL/L (98-107); GLOMERULAR FILTRATION RATE > 60.0 (>49); GLUCOSE, FASTING 92 MG/DL (74-106); POTASSIUM SERUM 4.4 MMOL/L (3.5-5.1); SODIUM LEVEL 133 MMOL/L (136-145); TOTAL PROTEIN 5.5 G/DL (5.7-8.2)
[2023-07-26 09:02] VITALS: BP 130/79; O2SAT 97
[2023-07-26 09:11] VITALS: BP 125/73; O2SAT 98
[2023-07-26 09:22] VITALS: BP 133/72; O2SAT 100
== END ==
LOC: M IRPRO 07:36
PROVIDERS: ATTEND Internal Medicine Gastroenterology
DX: R18.8 Other ascites (principal)
CPT/HCPCS: 49083; 80053; 85025; 85049; 85055; 96365; P9047

== ENCOUNTER → 2023-08-02 | Outpatient (CLI) | payer MEDICARE, MEDICAID ==
[2023-08-02 11:26] LABS: BASO % 0.7 % (0.0-1.0); EOS # 0.2 10^3/uL (0.0-0.5); EOS % 3.3 % (0.0-3.0); HEMATOCRIT 30.4 % (42.0-52.0); HEMOGLOBIN 10.6 g/dl (13.5-17.5); LYMPH % 35.3 % (24.0-44.0); MEAN CORPUSCULAR HEMOGLOBIN 38.3 pg (27.0-33.0); MEAN CORPUSCULAR HGB CONC 34.9 g/dl (32.0-36.5); MEAN CORPUSCULAR VOLUME 109.7 fl (80.0-96.0); MONO # 0.8 10^3/uL (0.0-0.8); MONO % 13.4 % (2.0-8.0); NEUTROPHILS # 2.7 10^3/uL (1.5-8.5); NEUTROPHILS % 46.4 % (36.0-66.0); RED BLOOD COUNT 2.77 10^6/uL (4.30-6.10); WHITE BLOOD COUNT 5.8 10^3/uL (4.0-10.0)
[2023-08-02 11:41] LABS: PLATELET COUNT, AUTOMATED 80 10^3/uL (150-450)
[2023-08-02 12:44] LABS: ALBUMIN 2.6 G/DL (3.2-5.2); ALKALINE PHOSPHATASE 137 U/L (46-116); ALT/SGPT 54 U/L (7.0-40); AST/SGOT 75 U/L (<34); BILIRUBIN,TOTAL 8.7 MG/DL (0.3-1.2); BLOOD UREA NITROGEN 10 MG/DL (9-23); CALCIUM LEVEL 8.6 MG/DL (8.3-10.6); CARBON DIOXIDE LEVEL 22 MMOL/L (20-31); CHLORIDE LEVEL 100 MMOL/L (98-107); CREATININE FOR GFR 0.82 MG/DL (0.70-1.30); GLOMERULAR FILTRATION RATE > 60.0 (>49); GLUCOSE, FASTING 84 MG/DL (74-106); SODIUM LEVEL 132 MMOL/L (136-145); TOTAL PROTEIN 5.9 G/DL (5.7-8.2)
== END ==
LOC: M LAB 10:46
PROVIDERS: ATTEND Physician Assistant Medical
DX: B37.0 Candidal stomatitis (principal); I50.32 Chronic diastolic (congestive) heart failure; K70.31 Alcoholic cirrhosis of liver with ascites

== ENCOUNTER → 2023-08-09 | Outpatient (CLI) | payer MEDICARE, MEDICAID ==
[2023-08-09 10:28] LABS: BASO # 0.1 10^3/uL (0.0-0.2); BASO % 1.3 % (0.0-1.0); EOS # 0.1 10^3/uL (0.0-0.5); EOS % 2.9 % (0.0-3.0); HEMOGLOBIN 10.3 g/dl (13.5-17.5); LYMPH # 1.7 10^3/uL (1.5-5.0); LYMPH % 37.6 % (24.0-44.0); MEAN CORPUSCULAR HEMOGLOBIN 37.5 pg (27.0-33.0); MEAN CORPUSCULAR HGB CONC 35.5 g/dl (32.0-36.5); MEAN CORPUSCULAR VOLUME 105.5 fl (80.0-96.0); MONO # 0.6 10^3/uL (0.0-0.8); MONO % 13.2 % (2.0-8.0); NEUTROPHILS % 44.1 % (36.0-66.0); RED BLOOD COUNT 2.75 10^6/uL (4.30-6.10); WHITE BLOOD COUNT 4.5 10^3/uL (4.0-10.0)
[2023-08-09 10:30] LABS: PLATELET COUNT, AUTOMATED 70 10^3/uL (150-450)
[2023-08-09 10:59] LABS: ALBUMIN 2.7 G/DL (3.2-5.2); ALKALINE PHOSPHATASE 117 U/L (46-116); ALT/SGPT 55 U/L (7.0-40); AST/SGOT 76 U/L (<34); BILIRUBIN,TOTAL 7.8 MG/DL (0.3-1.2); BLOOD UREA NITROGEN 11 MG/DL (9-23); CALCIUM LEVEL 8.4 MG/DL (8.3-10.6); CARBON DIOXIDE LEVEL 22 MMOL/L (20-31); CHLORIDE LEVEL 103 MMOL/L (98-107); CREATININE FOR GFR 0.84 MG/DL (0.70-1.30); GLOMERULAR FILTRATION RATE > 60.0 (>49); GLUCOSE, FASTING 97 MG/DL (74-106); POTASSIUM SERUM 4.2 MMOL/L (3.5-5.1); SODIUM LEVEL 133 MMOL/L (136-145); TOTAL PROTEIN 5.9 G/DL (5.7-8.2)
== END ==
LOC: M LAB 09:38
PROVIDERS: ATTEND Physician Assistant Medical
DX: B37.0 Candidal stomatitis (principal); I50.32 Chronic diastolic (congestive) heart failure; K70.31 Alcoholic cirrhosis of liver with ascites

== ENCOUNTER → 2023-08-09 | Outpatient (CLI) | payer MEDICARE, MEDICAID ==
[2023-08-09 10:34] VITALS: BP 146/80; TEMP 98.2; O2SAT 99
[2023-08-09 10:45] VITALS: BP 151/87; TEMP 98.2; O2SAT 99
[2023-08-09 11:08] VITALS: BP 130/67; TEMP 98.2; O2SAT 100
[2023-08-09 11:14] VITALS: BP 126/69; TEMP 98.1; O2SAT 100
[2023-08-09 11:42] VITALS: BP 124/63; TEMP 98.1; O2SAT 100
== END ==
LOC: M IRPRO 09:28
PROVIDERS: ATTEND Internal Medicine Gastroenterology
DX: K70.31 Alcoholic cirrhosis of liver with ascites (principal); B37.0 Candidal stomatitis; I50.32 Chronic diastolic (congestive) heart failure
CPT/HCPCS: 49083; 80053; 85025; 85049; 85055; 96365; P9047

== ENCOUNTER → 2023-08-16 | Outpatient (CLI) | payer MEDICARE, MEDICAID ==
[2023-08-16 11:39] LABS: BASO % 0.9 % (0.0-1.0); EOS # 0.1 10^3/uL (0.0-0.5); EOS % 2.3 % (0.0-3.0); HEMATOCRIT 29.9 % (42.0-52.0); HEMOGLOBIN 10.4 g/dl (13.5-17.5); LYMPH # 1.7 10^3/uL (1.5-5.0); LYMPH % 38.3 % (24.0-44.0); MEAN CORPUSCULAR HEMOGLOBIN 36.5 pg (27.0-33.0); MEAN CORPUSCULAR HGB CONC 34.8 g/dl (32.0-36.5); MEAN CORPUSCULAR VOLUME 104.9 fl (80.0-96.0); MONO # 0.7 10^3/uL (0.0-0.8); MONO % 15.1 % (2.0-8.0); NEUTROPHILS # 1.9 10^3/uL (1.5-8.5); NEUTROPHILS % 42.5 % (36.0-66.0); RED BLOOD COUNT 2.85 10^6/uL (4.30-6.10); WHITE BLOOD COUNT 4.4 10^3/uL (4.0-10.0)
[2023-08-16 11:44] LABS: PLATELET COUNT, AUTOMATED 71 10^3/uL (150-450)
[2023-08-16 12:03] LABS: ALBUMIN 2.6 G/DL (3.2-5.2); ALKALINE PHOSPHATASE 120 U/L (46-116); ALT/SGPT 48 U/L (7.0-40); AST/SGOT 63 U/L (<34); BLOOD UREA NITROGEN 10 MG/DL (9-23); CALCIUM LEVEL 8.5 MG/DL (8.3-10.6); CARBON DIOXIDE LEVEL 22 MMOL/L (20-31); CHLORIDE LEVEL 102 MMOL/L (98-107); CREATININE FOR GFR 0.78 MG/DL (0.70-1.30); GLOMERULAR FILTRATION RATE > 60.0 (>49); GLUCOSE, FASTING 102 MG/DL (74-106); POTASSIUM SERUM 4.1 MMOL/L (3.5-5.1); SODIUM LEVEL 133 MMOL/L (136-145); TOTAL PROTEIN 5.5 G/DL (5.7-8.2)
== END ==
LOC: M LAB 09:40
PROVIDERS: ATTEND Physician Assistant Medical
DX: B37.0 Candidal stomatitis (principal); I50.32 Chronic diastolic (congestive) heart failure; K70.31 Alcoholic cirrhosis of liver with ascites

== ENCOUNTER → 2023-08-16 | Outpatient (CLI) | payer MEDICARE, MEDICAID ==
[2023-08-16 09:45] VITALS: TEMP 97.6
[2023-08-16 11:00] VITALS: BP 122/74; O2SAT 97
== END ==
LOC: M IRPRO 09:30
PROVIDERS: ATTEND Internal Medicine Gastroenterology
DX: K70.31 Alcoholic cirrhosis of liver with ascites (principal); B37.0 Candidal stomatitis; I50.32 Chronic diastolic (congestive) heart failure

== ENCOUNTER → 2023-08-23 | Outpatient (REF) | payer MEDICARE, MEDICAID ==
[2023-08-23 18:02] LABS: BASO % 0.5 % (0.0-1.0); EOS # 0.1 10^3/uL (0.0-0.5); HEMATOCRIT 32.5 % (42.0-52.0); HEMOGLOBIN 11.3 g/dl (13.5-17.5); LYMPH # 2.2 10^3/uL (1.5-5.0); LYMPH % 39.9 % (24.0-44.0); MEAN CORPUSCULAR HEMOGLOBIN 36.1 pg (27.0-33.0); MEAN CORPUSCULAR HGB CONC 34.8 g/dl (32.0-36.5); MEAN CORPUSCULAR VOLUME 103.8 fl (80.0-96.0); MONO # 0.5 10^3/uL (0.0-0.8); NEUTROPHILS # 2.7 10^3/uL (1.5-8.5); NEUTROPHILS % 47.9 % (36.0-66.0); RED BLOOD COUNT 3.13 10^6/uL (4.30-6.10); WHITE BLOOD COUNT 5.5 10^3/uL (4.0-10.0)
[2023-08-23 18:20] LABS: PLATELET COUNT, AUTOMATED 71 10^3/uL (150-450)
[2023-08-23 18:21] LABS: INR 1.92; PROTHROMBIN TIME 21.3 SECONDS (12.5-14.5)
== END ==
LOC: M SFHCADAM 16:54
PROVIDERS: ATTEND Physician Assistant Medical
DX: K70.31 Alcoholic cirrhosis of liver with ascites (principal)

== ENCOUNTER → 2023-08-30 | Outpatient (CLI) | payer MEDICARE, MEDICAID ==
[2023-08-30 10:05] VITALS: BP 134/58; O2SAT 98
[2023-08-30 10:43] LABS: BASO # 0.1 10^3/uL (0.0-0.2); BASO % 0.8 % (0.0-1.0); EOS # 0.2 10^3/uL (0.0-0.5); EOS % 3.4 % (0.0-3.0); HEMATOCRIT 34.7 % (42.0-52.0); HEMOGLOBIN 12.3 g/dl (13.5-17.5); LYMPH # 1.9 10^3/uL (1.5-5.0); LYMPH % 32.8 % (24.0-44.0); MEAN CORPUSCULAR HEMOGLOBIN 36.4 pg (27.0-33.0); MEAN CORPUSCULAR HGB CONC 35.4 g/dl (32.0-36.5); MEAN CORPUSCULAR VOLUME 102.7 fl (80.0-96.0); MONO # 0.8 10^3/uL (0.0-0.8); MONO % 13.7 % (2.0-8.0); NEUTROPHILS # 2.8 10^3/uL (1.5-8.5); NEUTROPHILS % 48.1 % (36.0-66.0); RED BLOOD COUNT 3.38 10^6/uL (4.30-6.10); WHITE BLOOD COUNT 5.9 10^3/uL (4.0-10.0)
[2023-08-30 10:44] LABS: PLATELET COUNT, AUTOMATED 79 10^3/uL (150-450)
[2023-08-30 11:11] LABS: ALBUMIN 2.8 G/DL (3.2-5.2); ALKALINE PHOSPHATASE 135 U/L (46-116); ALT/SGPT 47 U/L (7.0-40); AST/SGOT 62 U/L (<34); BILIRUBIN,TOTAL 9.6 MG/DL (0.3-1.2); BLOOD UREA NITROGEN 11 MG/DL (9-23); CARBON DIOXIDE LEVEL 26 MMOL/L (20-31); CHLORIDE LEVEL 98 MMOL/L (98-107); GLOMERULAR FILTRATION RATE > 60.0 (>49); GLUCOSE, FASTING 93 MG/DL (74-106); POTASSIUM SERUM 3.9 MMOL/L (3.5-5.1); SODIUM LEVEL 131 MMOL/L (136-145)
== END ==
LOC: M IRPRO 09:25
PROVIDERS: ATTEND Internal Medicine Gastroenterology
DX: K70.31 Alcoholic cirrhosis of liver with ascites (principal); I50.32 Chronic diastolic (congestive) heart failure; B37.0 Candidal stomatitis

== ENCOUNTER → 2023-08-30 | Outpatient (CLI) | payer MEDICARE, MEDICAID | LOC: M LAB 09:34 | PROVIDERS: ATTEND Physician Assistant Medical | DX: B37.0 Candidal stomatitis (principal); I50.32 Chronic diastolic (congestive) heart failure; K70.31 Alcoholic cirrhosis of liver with ascites ==

== ENCOUNTER → 2023-09-13 | Outpatient (CLI) | payer MEDICARE, MEDICAID ==
[2023-09-13 09:35] VITALS: TEMP 96.5
[2023-09-13 10:20] VITALS: BP 115/61; O2SAT 100
== END ==
LOC: M IRPRO 09:19
PROVIDERS: ATTEND Internal Medicine Gastroenterology
DX: K70.31 Alcoholic cirrhosis of liver with ascites (principal); B37.0 Candidal stomatitis; I50.32 Chronic diastolic (congestive) heart failure

== ENCOUNTER → 2023-09-13 | Outpatient (CLI) | payer MEDICARE, MEDICAID ==
[2023-09-13 10:10] LABS: HEMATOCRIT 28.7 % (42.0-52.0); HEMOGLOBIN 10.2 g/dl (13.5-17.5); MEAN CORPUSCULAR HEMOGLOBIN 37.1 pg (27.0-33.0); MEAN CORPUSCULAR HGB CONC 35.5 g/dl (32.0-36.5); MEAN CORPUSCULAR VOLUME 104.4 fl (80.0-96.0); RED BLOOD COUNT 2.75 10^6/uL (4.30-6.10); WHITE BLOOD COUNT 9.5 10^3/uL (4.0-10.0)
[2023-09-13 10:25] LABS: PLATELET COUNT, AUTOMATED 48 10^3/uL (150-450)
[2023-09-13 10:30] LABS: ALBUMIN 2.1 G/DL (3.2-5.2); ALKALINE PHOSPHATASE 110 U/L (46-116); ALT/SGPT 36 U/L (7.0-40); AST/SGOT 33 U/L (<34); BILIRUBIN,TOTAL 10.7 MG/DL (0.3-1.2); BLOOD UREA NITROGEN 28 MG/DL (9-23); CALCIUM LEVEL 8.6 MG/DL (8.3-10.6); CARBON DIOXIDE LEVEL 19 MMOL/L (20-31); CHLORIDE LEVEL 101 MMOL/L (98-107); CREATININE FOR GFR 1.07 MG/DL (0.70-1.30); GLOMERULAR FILTRATION RATE > 60.0 (>49); GLUCOSE, FASTING 101 MG/DL (74-106); POTASSIUM SERUM 4.9 MMOL/L (3.5-5.1); SODIUM LEVEL 128 MMOL/L (136-145); TOTAL PROTEIN 5.1 G/DL (5.7-8.2)
[2023-09-13 11:08] LABS: LYMPHOCYTES 13 % (16-44); MONOCYTES 19 % (0-5); NEUTROPHILS 68 % (28-66); PLATELET ESTIMATE DECREASED (NORMAL)
[2023-09-13 11:09] LABS: ANISOCYTOSIS 2+; SCHISTOCYTES 2+; TEAR DROP CELLS 1+
== END ==
LOC: M LAB 09:25
PROVIDERS: ATTEND Physician Assistant Medical
DX: B37.0 Candidal stomatitis (principal); I50.32 Chronic diastolic (congestive) heart failure; K70.31 Alcoholic cirrhosis of liver with ascites

== ENCOUNTER 2023-09-18 22:21 | Inpatient (IN) | payer MEDICARE, MEDICAID ==
[~2023-09-18] VITALS: Ht 170.2 cm; Wt 117.7 kg
[2023-09-19 02:21] LABS: VENOUS BASE EXCESS -4.2 (-2.0-2.0); VENOUS HCO3 18.7 MMOL/L (23.0-27.0); VENOUS O2 SATURATION 87.8 % (60.0-80.0); VENOUS PARTIAL PRESSURE CO2 27.1 mmHg (38.0-50.0); VENOUS PARTIAL PRESSURE O2 56.8 mmHg (30.0-50.0); VENOUS PH 7.457 UNITS (7.330-7.430); VENOUS STANDARD HCO3 20.8 MMOL/L; VENOUS TOTAL CO2 19.5 MMOL/L (24.0-28.0)
[2023-09-19 02:47] LABS: INR 1.81; PARTIAL THROMBOPLASTIN TIME 40.7 SECONDS (24.8-34.2); PROTHROMBIN TIME 20.3 SECONDS (12.5-14.5)
[2023-09-19 02:48] LABS: ETHYL ALCOHOL (ETHANOL) < 0.003 % (0.000-0.010); LIPASE 53 U/L (12-53)
[2023-09-19 02:49] LABS: CPK CREATINE PHOSPHOKINASE 55 U/L (46-171)
[2023-09-19 02:50] LABS: ALBUMIN 1.9 G/DL (3.2-5.2); ALKALINE PHOSPHATASE 105 U/L (46-116); ALT/SGPT 34 U/L (7.0-40); AST/SGOT 44 U/L (<34); BILIRUBIN,DIRECT 4.5 MG/DL (<0.4); BLOOD UREA NITROGEN 35 MG/DL (9-23); CALCIUM LEVEL 7.8 MG/DL (8.3-10.6); CARBON DIOXIDE LEVEL 19 MMOL/L (20-31); CHLORIDE LEVEL 104 MMOL/L (98-107); CK-MB VALUE MASS 1.3 NG/ML (<3.6); CREATININE FOR GFR 1.35 MG/DL (0.70-1.30); GLOMERULAR FILTRATION RATE 56.3 (>49); GLUCOSE, FASTING 94 MG/DL (74-106); MB/CK RELATIVE INDEX 2.36 (< OR =4); POTASSIUM SERUM 4.7 MMOL/L (3.5-5.1); SODIUM LEVEL 128 MMOL/L (136-145)
[2023-09-19 02:52] LABS: THYROID STIMULATING HORMONE 2.866 uIU/ML (0.55-4.78)
[2023-09-19 03:01] LABS: HEMATOCRIT 24.6 % (42.0-52.0); HEMOGLOBIN 8.8 g/dl (13.5-17.5); MEAN CORPUSCULAR HEMOGLOBIN 36.1 pg (27.0-33.0); MEAN CORPUSCULAR HGB CONC 35.8 g/dl (32.0-36.5); MEAN CORPUSCULAR VOLUME 100.8 fl (80.0-96.0); RED BLOOD COUNT 2.44 10^6/uL (4.30-6.10); WHITE BLOOD COUNT 10.2 10^3/uL (4.0-10.0)
[2023-09-19 03:02] LABS: PLATELET COUNT, AUTOMATED 57 10^3/uL (150-450)
[2023-09-19] MEDS: LACTULOSE 20GM/30ML SYRUP UDC PO ONE (05:20)
[2023-09-19] MEDS: PIPERACILLIN/TAZOBACTAM SOD 4.5 GM in D5W MINI-BAG PLUS 50 ML IV SCH (05:20)
[2023-09-19] MEDS: NS 1,000 ML IV SCH (05:20)
[2023-09-19 05:55] VITALS: BP 100/57; TEMP 98.2; O2SAT 95
[2023-09-19] MEDS ORDERED: PIPERACILLIN/TAZOBACTAM SOD 4.5 GM in D5W MINI-BAG PLUS 50 ML IV SCH (06:00)
[2023-09-19 08:00] VITALS: BP 126/70; TEMP 97.3; O2SAT 100
[2023-09-19] MEDS: THIAMINE 100 MG TAB PO SCH (08:57)
[2023-09-19] MEDS: PANTOPRAZOLE 40MG TAB (PROTONIX) PO SCH (08:57)
[2023-09-19] MEDS: LACTULOSE 20GM/30ML SYRUP UDC PO SCH (08:57)
[2023-09-19 09:00] LABS: CK-MB VALUE MASS 1.6 NG/ML (<3.6)
[2023-09-19 09:01] LABS: MB/CK RELATIVE INDEX 3.01 (< OR =4)
[2023-09-19] MEDS ORDERED: ONDA-282 SL (11:12)
[2023-09-19] MEDS ORDERED: FLORCAP6 PO (11:12)
[2023-09-19] MEDS ORDERED: ADVA230A INH (11:12)
[2023-09-19] MEDS ORDERED: CHOL4POW26 PO (11:12)
[2023-09-19] MEDS ORDERED: MIDO5TA PO (11:12)
[2023-09-19] MEDS ORDERED: SPIR50TA4 PO (11:12)
[2023-09-19] MEDS ORDERED: SIME1CAP3 PO (11:12)
[2023-09-19] MEDS ORDERED: OXYC-517 PO (11:12)
[2023-09-19] MEDS ORDERED: HOME MED LIST COMPLETE! XX SCH (11:15)
[2023-09-19] MEDS ORDERED: GNP250TA9 PO (11:16)
[2023-09-19] MEDS ORDERED: SENN-188 PO (11:16)
[2023-09-19 13:30] VITALS: BP 117/69; TEMP 97; O2SAT 100
[2023-09-19] MEDS ORDERED: ACETAMINOPHEN TAB 650MG DOSE (2X325MG) PO PRN (15:10)
[2023-09-19] MEDS: MORPHINE 2 MG/ML 1ML VIAL IV PRN (15:36)
[2023-09-19] MEDS: NEOSPORIN TOP OINT 15GM TOP ONE (15:36)
[2023-09-19 15:59] VITALS: BP 126/64; TEMP 97.6; O2SAT 100
[2023-09-19 20:46] VITALS: BP 117/64; TEMP 98; O2SAT 100
[2023-09-19] MEDS: HEPARIN SOD (PORCINE) 5000UNITS/ML 1ML VIAL/SYRINGE SC SCH (23:19)
[2023-09-20] VITALS (8 sets, daily range): BP systolic 104–160; BP diastolic 56–76; TEMP 97.2–98.2; O2SAT 96–100
[2023-09-20 05:56] LABS: BASO % 0.4 % (0.0-1.0); EOS # 0.1 10^3/uL (0.0-0.5); EOS % 1.6 % (0.0-3.0); HEMATOCRIT 25.4 % (42.0-52.0); HEMOGLOBIN 9.1 g/dl (13.5-17.5); LYMPH # 2.4 10^3/uL (1.5-5.0); LYMPH % 29.2 % (24.0-44.0); MEAN CORPUSCULAR HEMOGLOBIN 36.7 pg (27.0-33.0); MEAN CORPUSCULAR HGB CONC 35.8 g/dl (32.0-36.5); MEAN CORPUSCULAR VOLUME 102.4 fl (80.0-96.0); MONO # 0.9 10^3/uL (0.0-0.8); MONO % 10.5 % (2.0-8.0); NEUTROPHILS # 4.4 10^3/uL (1.5-8.5); NEUTROPHILS % 54.7 % (36.0-66.0); RED BLOOD COUNT 2.48 10^6/uL (4.30-6.10); WHITE BLOOD COUNT 8.1 10^3/uL (4.0-10.0)
[2023-09-20 05:59] LABS: PLATELET COUNT, AUTOMATED 61 10^3/uL (150-450)
[2023-09-20 06:10] LABS: INR 1.98; PROTHROMBIN TIME 21.8 SECONDS (12.5-14.5)
[2023-09-20 07:03] LABS: ALBUMIN 1.9 G/DL (3.2-5.2); ALKALINE PHOSPHATASE 108 U/L (46-116); ALT/SGPT 36 U/L (7.0-40); AST/SGOT 44 U/L (<34); BILIRUBIN,TOTAL 7.4 MG/DL (0.3-1.2); BLOOD UREA NITROGEN 25 MG/DL (9-23); CALCIUM LEVEL 7.6 MG/DL (8.3-10.6); CARBON DIOXIDE LEVEL 19 MMOL/L (20-31); CHLORIDE LEVEL 107 MMOL/L (98-107); CREATININE FOR GFR 1.13 MG/DL (0.70-1.30); GLOMERULAR FILTRATION RATE > 60.0 (>49); GLUCOSE, FASTING 104 MG/DL (74-106); MAGNESIUM LEVEL 2.3 MG/DL (1.8-2.4); POTASSIUM SERUM 4.4 MMOL/L (3.5-5.1); SODIUM LEVEL 134 MMOL/L (136-145); TOTAL PROTEIN 5.2 G/DL (5.7-8.2)
[2023-09-20 07:10] LABS: PROCALCITONIN 0.36 ng/ml
[2023-09-20] MEDS: cefTRIAXone SOD 1 GM in D5W MINI-BAG PLUS 50 ML IV SCH (17:02)
[2023-09-21] VITALS (9 sets, daily range): BP systolic 118–137; BP diastolic 62–78; TEMP 96.9–98.6; O2SAT 96–100
[2023-09-21 06:36] LABS: ALBUMIN 2.2 G/DL (3.2-5.2); ALKALINE PHOSPHATASE 105 U/L (46-116); ALT/SGPT 36 U/L (7.0-40); AST/SGOT 42 U/L (<34); BILIRUBIN,TOTAL 6.9 MG/DL (0.3-1.2); BLOOD UREA NITROGEN 20 MG/DL (9-23); CALCIUM LEVEL 7.7 MG/DL (8.3-10.6); CARBON DIOXIDE LEVEL 20 MMOL/L (20-31); CHLORIDE LEVEL 104 MMOL/L (98-107); CREATININE FOR GFR 0.92 MG/DL (0.70-1.30); GLOMERULAR FILTRATION RATE > 60.0 (>49); GLUCOSE, FASTING 92 MG/DL (74-106); POTASSIUM SERUM 4.4 MMOL/L (3.5-5.1); SODIUM LEVEL 131 MMOL/L (136-145); TOTAL PROTEIN 5.3 G/DL (5.7-8.2)
[2023-09-21 08:11] LABS: HEMATOCRIT 26.3 % (42.0-52.0); HEMOGLOBIN 9.4 g/dl (13.5-17.5); MEAN CORPUSCULAR HGB CONC 35.7 g/dl (32.0-36.5); MEAN CORPUSCULAR VOLUME 103.5 fl (80.0-96.0); RED BLOOD COUNT 2.54 10^6/uL (4.30-6.10); WHITE BLOOD COUNT 7.9 10^3/uL (4.0-10.0)
[2023-09-21 08:18] LABS: PLATELET COUNT, AUTOMATED 69 10^3/uL (150-450)
[2023-09-21] MEDS: rifAXIMin 550 MG TAB (XIFAXAN) PO SCH (08:43)
[2023-09-21] MEDS: RAMELTEON 8 MG TAB (ROZEREM) PO PRN (21:10)
[2023-09-22] VITALS (10 sets, daily range): BP systolic 109–144; BP diastolic 70–76; TEMP 96.7–97.9; O2SAT 93–100
[2023-09-22 07:03] LABS: INR 2.1; PROTHROMBIN TIME 22.9 SECONDS (12.5-14.5)
[2023-09-22 07:28] LABS: ALBUMIN 2.4 G/DL (3.2-5.2); ALKALINE PHOSPHATASE 93 U/L (46-116); ALT/SGPT 33 U/L (7.0-40); AST/SGOT 35 U/L (<34); BILIRUBIN,TOTAL 6.2 MG/DL (0.3-1.2); BLOOD UREA NITROGEN 18 MG/DL (9-23); CALCIUM LEVEL 7.6 MG/DL (8.3-10.6); CARBON DIOXIDE LEVEL 18 MMOL/L (20-31); CHLORIDE LEVEL 102 MMOL/L (98-107); CREATININE FOR GFR 0.81 MG/DL (0.70-1.30); GLOMERULAR FILTRATION RATE > 60.0 (>49); GLUCOSE, FASTING 130 MG/DL (74-106); POTASSIUM SERUM 4.4 MMOL/L (3.5-5.1); SODIUM LEVEL 128 MMOL/L (136-145); TOTAL PROTEIN 5.2 G/DL (5.7-8.2)
[2023-09-22] MEDS: NS 1,000 ML IV SCH (10:55)
[2023-09-23 04:00] VITALS: BP 125/71; TEMP 97.3; O2SAT 93
[2023-09-23 05:56] LABS: HEMATOCRIT 24.4 % (42.0-52.0); HEMOGLOBIN 8.8 g/dl (13.5-17.5); MEAN CORPUSCULAR HEMOGLOBIN 36.2 pg (27.0-33.0); MEAN CORPUSCULAR HGB CONC 36.1 g/dl (32.0-36.5); MEAN CORPUSCULAR VOLUME 100.4 fl (80.0-96.0); RED BLOOD COUNT 2.43 10^6/uL (4.30-6.10); WHITE BLOOD COUNT 7.9 10^3/uL (4.0-10.0)
[2023-09-23 05:57] LABS: INR 1.98; PROTHROMBIN TIME 21.8 SECONDS (12.5-14.5)
[2023-09-23 06:11] LABS: PLATELET COUNT, AUTOMATED 66 10^3/uL (150-450)
[2023-09-23 06:21] LABS: ALBUMIN 2.4 G/DL (3.2-5.2); ALKALINE PHOSPHATASE 96 U/L (46-116); ALT/SGPT 35 U/L (7.0-40); AST/SGOT 42 U/L (<34); BILIRUBIN,TOTAL 6.5 MG/DL (0.3-1.2); BLOOD UREA NITROGEN 14 MG/DL (9-23); CALCIUM LEVEL 7.7 MG/DL (8.3-10.6); CARBON DIOXIDE LEVEL 20 MMOL/L (20-31); CHLORIDE LEVEL 102 MMOL/L (98-107); CREATININE FOR GFR 0.62 MG/DL (0.70-1.30); GLOMERULAR FILTRATION RATE > 60.0 (>49); GLUCOSE, FASTING 84 MG/DL (74-106); POTASSIUM SERUM 4.6 MMOL/L (3.5-5.1); SODIUM LEVEL 127 MMOL/L (136-145); TOTAL PROTEIN 5.1 G/DL (5.7-8.2)
[2023-09-23 09:55] VITALS: BP 122/68; TEMP 97.7; O2SAT 94
[2023-09-23] MEDS: SPIRONOLACTONE 50 MG TAB PO SCH (10:45)
[2023-09-23 12:18] VITALS: BP 131/70; TEMP 97.9; O2SAT 90
[2023-09-23 16:00] VITALS: BP 143/86; TEMP 97.7; O2SAT 99
[2023-09-23] MEDS ORDERED: FUROSEMIDE 40MG/4ML VIAL IV SCH (17:00)
[2023-09-23 20:00] VITALS: BP 114/62; TEMP 97.5; O2SAT 97
[2023-09-23] MEDS: CARVedilol 3.125 MG TAB PO SCH (20:56)
[2023-09-23] MEDS: CEFDINIR 300 MG CAP (OMNICEF) PO SCH (20:56)
[2023-09-23 23:53] VITALS: BP 126/72; TEMP 97.5; O2SAT 98
[2023-09-24 04:00] VITALS: BP 123/73; TEMP 97.3; O2SAT 97
[2023-09-24 06:45] LABS: INR 2.02; PROTHROMBIN TIME 22.2 SECONDS (12.5-14.5)
[2023-09-24 07:04] LABS: ALBUMIN 2.4 G/DL (3.2-5.2); ALKALINE PHOSPHATASE 102 U/L (46-116); ALT/SGPT 38 U/L (7.0-40); AST/SGOT 43 U/L (<34); BLOOD UREA NITROGEN 14 MG/DL (9-23); CALCIUM LEVEL 7.9 MG/DL (8.3-10.6); CARBON DIOXIDE LEVEL 20 MMOL/L (20-31); CHLORIDE LEVEL 100 MMOL/L (98-107); CREATININE FOR GFR 0.65 MG/DL (0.70-1.30); GLOMERULAR FILTRATION RATE > 60.0 (>49); GLUCOSE, FASTING 94 MG/DL (74-106); POTASSIUM SERUM 4.7 MMOL/L (3.5-5.1); SODIUM LEVEL 125 MMOL/L (136-145); TOTAL PROTEIN 5.2 G/DL (5.7-8.2)
[2023-09-24 08:00] VITALS: BP 125/79; TEMP 97.3; O2SAT 98
[2023-09-24 08:45] LABS: BASO % 0.5 % (0.0-1.0); EOS # 0.1 10^3/uL (0.0-0.5); EOS % 0.9 % (0.0-3.0); HEMATOCRIT 25.4 % (42.0-52.0); HEMOGLOBIN 9.2 g/dl (13.5-17.5); LYMPH # 2.2 10^3/uL (1.5-5.0); LYMPH % 29.2 % (24.0-44.0); MEAN CORPUSCULAR HEMOGLOBIN 37.7 pg (27.0-33.0); MEAN CORPUSCULAR HGB CONC 36.2 g/dl (32.0-36.5); MEAN CORPUSCULAR VOLUME 104.1 fl (80.0-96.0); NEUTROPHILS # 4.1 10^3/uL (1.5-8.5); NEUTROPHILS % 54.4 % (36.0-66.0); RED BLOOD COUNT 2.44 10^6/uL (4.30-6.10); WHITE BLOOD COUNT 7.5 10^3/uL (4.0-10.0)
[2023-09-24 08:48] LABS: PLATELET COUNT, AUTOMATED 78 10^3/uL (150-450)
[2023-09-24 12:00] VITALS: BP 123/70; TEMP 96.8; O2SAT 98
[2023-09-24 16:00] VITALS: BP 123/70; TEMP 97.5; O2SAT 100
[2023-09-24 20:00] VITALS: BP 123/70; TEMP 97.7; O2SAT 98
[2023-09-24] MEDS ORDERED: NON-FORMULARY 1 EA EA PO SCH (21:00)
[2023-09-25] VITALS (7 sets, daily range): BP systolic 115–122; BP diastolic 66–72; TEMP 97.2–98.1; O2SAT 97–100
[2023-09-25 07:16] LABS: HEMATOCRIT 26.7 % (42.0-52.0); HEMOGLOBIN 9.6 g/dl (13.5-17.5); MEAN CORPUSCULAR HEMOGLOBIN 37.1 pg (27.0-33.0); MEAN CORPUSCULAR VOLUME 103.1 fl (80.0-96.0); RED BLOOD COUNT 2.59 10^6/uL (4.30-6.10); WHITE BLOOD COUNT 7.1 10^3/uL (4.0-10.0)
[2023-09-25 07:21] LABS: PLATELET COUNT, AUTOMATED 85 10^3/uL (150-450)
[2023-09-25 07:26] LABS: INR 1.94; PROTHROMBIN TIME 21.4 SECONDS (12.5-14.5)
[2023-09-26 04:19] VITALS: BP 108/69; TEMP 97.9; O2SAT 97
[2023-09-26] MEDS: VANICREAM MOISTURIZING SKIN CREAM 113GM TUBE TOP PRN (04:21)
[2023-09-26 06:12] LABS: BASO # 0.1 10^3/uL (0.0-0.2); BASO % 0.8 % (0.0-1.0); EOS # 0.1 10^3/uL (0.0-0.5); EOS % 1.4 % (0.0-3.0); HEMATOCRIT 29.6 % (42.0-52.0); HEMOGLOBIN 10.1 g/dl (13.5-17.5); LYMPH # 2.5 10^3/uL (1.5-5.0); LYMPH % 34.9 % (24.0-44.0); MEAN CORPUSCULAR HEMOGLOBIN 35.7 pg (27.0-33.0); MEAN CORPUSCULAR HGB CONC 34.1 g/dl (32.0-36.5); MEAN CORPUSCULAR VOLUME 104.6 fl (80.0-96.0); MONO # 0.8 10^3/uL (0.0-0.8); MONO % 11.5 % (2.0-8.0); NEUTROPHILS # 3.6 10^3/uL (1.5-8.5); NEUTROPHILS % 50.1 % (36.0-66.0); RED BLOOD COUNT 2.83 10^6/uL (4.30-6.10); WHITE BLOOD COUNT 7.1 10^3/uL (4.0-10.0)
[2023-09-26 06:16] LABS: PLATELET COUNT, AUTOMATED 83 10^3/uL (150-450)
[2023-09-26 06:25] LABS: INR 1.93; PROTHROMBIN TIME 21.4 SECONDS (12.5-14.5)
[2023-09-26 06:37] LABS: ALBUMIN 2.3 G/DL (3.2-5.2); ALKALINE PHOSPHATASE 112 U/L (46-116); ALT/SGPT 44 U/L (7.0-40); AST/SGOT 50 U/L (<34); BILIRUBIN,TOTAL 6.4 MG/DL (0.3-1.2); BLOOD UREA NITROGEN 14 MG/DL (9-23); CALCIUM LEVEL 7.9 MG/DL (8.3-10.6); CARBON DIOXIDE LEVEL 20 MMOL/L (20-31); CHLORIDE LEVEL 104 MMOL/L (98-107); CREATININE FOR GFR 0.69 MG/DL (0.70-1.30); GLOMERULAR FILTRATION RATE > 60.0 (>49); GLUCOSE, FASTING 112 MG/DL (74-106); PHOSPHORUS LEVEL 2.7 MG/DL (2.4-5.1); POTASSIUM SERUM 4.8 MMOL/L (3.5-5.1); SODIUM LEVEL 127 MMOL/L (136-145); TOTAL PROTEIN 5.5 G/DL (5.7-8.2)
[2023-09-26 08:00] VITALS: BP 108/76; TEMP 97.7; O2SAT 97
[2023-09-26] MEDS: CIPROFLOXACIN 500MG TABLET PO SCH (09:50)
[2023-09-26 12:00] VITALS: BP 109/70; TEMP 97.7; O2SAT 99
[2023-09-26 16:00] VITALS: BP 116/67; TEMP 97.7; O2SAT 90
[2023-09-26] MEDS: ETHACRYNIC ACID 25MG TAB PO SCH (16:09)
[2023-09-26 19:40] VITALS: BP 116/66; TEMP 97.9; O2SAT 97
[2023-09-26 21:40] VITALS: BP 116/65
[2023-09-27] VITALS: BP 108/68; TEMP 97.7; O2SAT 98
[2023-09-27 04:00] VITALS: BP 110/66; TEMP 97.9; O2SAT 97
[2023-09-27 06:12] LABS: BASO # 0.1 10^3/uL (0.0-0.2); BASO % 1.2 % (0.0-1.0); EOS # 0.1 10^3/uL (0.0-0.5); EOS % 1.3 % (0.0-3.0); HEMATOCRIT 25.6 % (42.0-52.0); HEMOGLOBIN 8.9 g/dl (13.5-17.5); LYMPH # 2.1 10^3/uL (1.5-5.0); LYMPH % 29.8 % (24.0-44.0); MEAN CORPUSCULAR HEMOGLOBIN 35.9 pg (27.0-33.0); MEAN CORPUSCULAR HGB CONC 34.8 g/dl (32.0-36.5); MEAN CORPUSCULAR VOLUME 103.2 fl (80.0-96.0); MONO # 1.1 10^3/uL (0.0-0.8); MONO % 16.1 % (2.0-8.0); NEUTROPHILS # 3.5 10^3/uL (1.5-8.5); NEUTROPHILS % 50.4 % (36.0-66.0); RED BLOOD COUNT 2.48 10^6/uL (4.30-6.10); WHITE BLOOD COUNT 6.9 10^3/uL (4.0-10.0)
[2023-09-27 06:39] LABS: PLATELET COUNT, AUTOMATED 71 10^3/uL (150-450)
[2023-09-27 06:41] LABS: ALKALINE PHOSPHATASE 103 U/L (46-116); ALT/SGPT 36 U/L (7.0-40); AST/SGOT 39 U/L (<34); BILIRUBIN,TOTAL 5.3 MG/DL (0.3-1.2); BLOOD UREA NITROGEN 16 MG/DL (9-23); CALCIUM LEVEL 7.7 MG/DL (8.3-10.6); CARBON DIOXIDE LEVEL 21 MMOL/L (20-31); CHLORIDE LEVEL 103 MMOL/L (98-107); CREATININE FOR GFR 0.84 MG/DL (0.70-1.30); GLOMERULAR FILTRATION RATE > 60.0 (>49); GLUCOSE, FASTING 101 MG/DL (74-106); POTASSIUM SERUM 4.7 MMOL/L (3.5-5.1); SODIUM LEVEL 129 MMOL/L (136-145); TOTAL PROTEIN 4.9 G/DL (5.7-8.2)
[2023-09-27 08:07] VITALS: BP 116/78; TEMP 97.9; O2SAT 94
[2023-09-27] MEDS ORDERED: LACT20EL PO (10:50)
[2023-09-27] MEDS ORDERED: VANI1CRE5 TOP (10:50)
[2023-09-27] MEDS ORDERED: CIPR500T39 PO (10:50)
[2023-09-27] MEDS ORDERED: ETHA25TA2 PO (10:50)
[2023-09-27] MEDS ORDERED: PANT40TA29 PO (10:50)
[2023-09-27] MEDS ORDERED: XIFA550T PO (10:51)
[2023-09-27 12:00] VITALS: BP 113/78; TEMP 97.5; O2SAT 98
[2023-09-27 12:15] VITALS: TEMP 96.8
[2023-09-27 12:39] VITALS: BP 110/60; O2SAT 100
== END 2023-09-27 14:58 | DRG 432 ==
LOC: M ED 22:21 → M ED INP 09-19 04:34 → M PCU 09-19 05:57 → M MSPAV 09-22 15:26
PROVIDERS: ADMIT Preventive Medicine Undersea and Hyperbaric Medicine; ATTEND Preventive Medicine Undersea and Hyperbaric Medicine
PROC: 0W9G3ZZ Drainage of Peritoneal Cavity, Percutaneous Approach (ICD-10-PCS; 2023-09-19)
PROC: 06HY33Z Insertion of Infusion Device into Lower Vein, Percutaneous Approach (ICD-10-PCS; 2023-09-19)
PROC: 30233J1 Transfusion of Nonautologous Serum Albumin into Peripheral Vein, Percutaneous Approach (ICD-10-PCS; principal; 2023-09-20)
PROC: B246ZZZ Ultrasonography of Right and Left Heart (ICD-10-PCS; 2023-09-23)
DX: K70.31 Alcoholic cirrhosis of liver with ascites (principal); G92.8 Other toxic encephalopathy; N17.9 Acute kidney failure, unspecified; E87.1 Hypo-osmolality and hyponatremia; E87.20 Acidosis, unspecified; K76.6 Portal hypertension; K76.82 Hepatic encephalopathy; I10 Essential (primary) hypertension; D64.9 Anemia, unspecified; M19.90 Unspecified osteoarthritis, unspecified site; R00.1 Bradycardia, unspecified; E66.9 Obesity, unspecified; I48.91 Unspecified atrial fibrillation; K21.9 Gastro-esophageal reflux disease without esophagitis; E78.5 Hyperlipidemia, unspecified; Z95.0 Presence of cardiac pacemaker; Z98.84 Bariatric surgery status; Z87.891 Personal history of nicotine dependence; Z79.82 Long term (current) use of aspirin; Z79.899 Other long term (current) drug therapy; Z86.73 Personal history of transient ischemic attack (TIA), and cerebral infarction without residual deficits

== ENCOUNTER → 2023-10-05 | Outpatient (CLI) | payer MEDICARE, MEDICAID ==
[~2023-10-05] MED LIST changes: +ACET1TAB55 PO; +ADVA230A INH; +BENA25CA4 PO; +CHOL4POW26 PO; +CIPR500T39 PO; +ETHA25TA2 PO; +FLORCAP6 PO; +GNP250TA9 PO; +LACT20EL PO; +ONDA-282 SL; +PANT40TA29 PO; +SENN-186 PO; +SENN-188 PO; +SPIR50TA4 PO; +VANI1CRE5 TOP; +XIFA550T PO
[2023-10-05 09:15] VITALS: TEMP 96.8
[2023-10-05 10:51] VITALS: BP 87/52; O2SAT 100
[2023-10-05 10:55] VITALS: BP 91/53; O2SAT 100
[2023-10-05 11:01] VITALS: BP 98/60; O2SAT 100
[2023-10-05 11:12] VITALS: BP 90/56; O2SAT 100
== END ==
LOC: M IRPRO 09:01
PROVIDERS: ATTEND Internal Medicine Gastroenterology
DX: R18.8 Other ascites (principal); K74.60 Unspecified cirrhosis of liver; B37.0 Candidal stomatitis; I50.32 Chronic diastolic (congestive) heart failure
CPT/HCPCS: 49083; 80053; 85025; 85049; 85055; 96365; P9047

== ENCOUNTER → 2023-10-05 | Outpatient (CLI) | payer MEDICARE, MEDICAID ==
[2023-10-05 11:27] LABS: BASO % 0.4 % (0.0-1.0); EOS # 0.1 10^3/uL (0.0-0.5); EOS % 1.5 % (0.0-3.0); HEMATOCRIT 27.1 % (42.0-52.0); HEMOGLOBIN 9.6 g/dl (13.5-17.5); LYMPH # 2.1 10^3/uL (1.5-5.0); LYMPH % 25.5 % (24.0-44.0); MEAN CORPUSCULAR HEMOGLOBIN 37.2 pg (27.0-33.0); MEAN CORPUSCULAR HGB CONC 35.4 g/dl (32.0-36.5); MONO # 1.4 10^3/uL (0.0-0.8); NEUTROPHILS # 4.6 10^3/uL (1.5-8.5); NEUTROPHILS % 54.4 % (36.0-66.0); RED BLOOD COUNT 2.58 10^6/uL (4.30-6.10); WHITE BLOOD COUNT 8.4 10^3/uL (4.0-10.0)
[2023-10-05 11:30] LABS: PLATELET COUNT, AUTOMATED 73 10^3/uL (150-450)
[2023-10-05 11:49] LABS: ALBUMIN 2.4 G/DL (3.2-5.2); ALKALINE PHOSPHATASE 127 U/L (46-116); ALT/SGPT 52 U/L (7.0-40); AST/SGOT 66 U/L (<34); BILIRUBIN,TOTAL 5.5 MG/DL (0.3-1.2); BLOOD UREA NITROGEN 27 MG/DL (9-23); CALCIUM LEVEL 8.6 MG/DL (8.3-10.6); CARBON DIOXIDE LEVEL 23 MMOL/L (20-31); CHLORIDE LEVEL 100 MMOL/L (98-107); CREATININE FOR GFR 1.11 MG/DL (0.70-1.30); GLOMERULAR FILTRATION RATE > 60.0 (>49); GLUCOSE, FASTING 78 MG/DL (74-106); POTASSIUM SERUM 3.5 MMOL/L (3.5-5.1); SODIUM LEVEL 131 MMOL/L (136-145); TOTAL PROTEIN 5.7 G/DL (5.7-8.2)
== END ==
LOC: M LAB 09:07
PROVIDERS: ATTEND Physician Assistant Medical
DX: B37.0 Candidal stomatitis (principal); K70.31 Alcoholic cirrhosis of liver with ascites; I50.32 Chronic diastolic (congestive) heart failure

== ENCOUNTER → 2023-10-11 | Outpatient (CLI) | payer MEDICARE, MEDICAID ==
[2023-10-11 11:17] LABS: BASO # 0.1 10^3/uL (0.0-0.2); BASO % 0.8 % (0.0-1.0); EOS # 0.2 10^3/uL (0.0-0.5); EOS % 2.4 % (0.0-3.0); HEMATOCRIT 28.3 % (42.0-52.0); HEMOGLOBIN 9.7 g/dl (13.5-17.5); LYMPH # 1.7 10^3/uL (1.5-5.0); LYMPH % 22.7 % (24.0-44.0); MEAN CORPUSCULAR HEMOGLOBIN 36.7 pg (27.0-33.0); MEAN CORPUSCULAR HGB CONC 34.3 g/dl (32.0-36.5); MEAN CORPUSCULAR VOLUME 107.2 fl (80.0-96.0); MONO # 1.1 10^3/uL (0.0-0.8); MONO % 14.1 % (2.0-8.0); NEUTROPHILS # 4.4 10^3/uL (1.5-8.5); NEUTROPHILS % 58.9 % (36.0-66.0); RED BLOOD COUNT 2.64 10^6/uL (4.30-6.10); WHITE BLOOD COUNT 7.5 10^3/uL (4.0-10.0)
[2023-10-11 11:18] LABS: PLATELET COUNT, AUTOMATED 86 10^3/uL (150-450)
[2023-10-11 11:52] LABS: ALBUMIN 2.5 G/DL (3.2-5.2); BILIRUBIN,TOTAL 6.6 MG/DL (0.3-1.2); CALCIUM LEVEL 8.4 MG/DL (8.3-10.6); CREATININE FOR GFR 1.48 MG/DL (0.70-1.30); GLOMERULAR FILTRATION RATE 50.6 (>49); POTASSIUM SERUM 3.3 MMOL/L (3.5-5.1); TOTAL PROTEIN 5.1 G/DL (5.7-8.2)
== END ==
LOC: M LAB 10:01
PROVIDERS: ATTEND Physician Assistant Medical
DX: B37.0 Candidal stomatitis (principal); I50.32 Chronic diastolic (congestive) heart failure; K70.31 Alcoholic cirrhosis of liver with ascites

== ENCOUNTER → 2023-10-11 | Outpatient (CLI) | payer MEDICARE, MEDICAID ==
[2023-10-11 10:07] VITALS: TEMP 97.8
[2023-10-11 11:03] VITALS: BP 108/56; O2SAT 100
== END ==
LOC: M IRPRO 09:53
PROVIDERS: ATTEND Internal Medicine Gastroenterology
DX: K70.31 Alcoholic cirrhosis of liver with ascites (principal); B37.0 Candidal stomatitis; I50.32 Chronic diastolic (congestive) heart failure

== ENCOUNTER → 2023-10-19 | Outpatient (CLI) | payer MEDICARE, MEDICAID ==
[2023-10-19 09:47] LABS: BASO # 0.1 10^3/uL (0.0-0.2); BASO % 1.4 % (0.0-1.0); EOS # 0.3 10^3/uL (0.0-0.5); EOS % 4.4 % (0.0-3.0); HEMATOCRIT 30.8 % (42.0-52.0); HEMOGLOBIN 10.6 g/dl (13.5-17.5); LYMPH # 1.5 10^3/uL (1.5-5.0); LYMPH % 21.2 % (24.0-44.0); MEAN CORPUSCULAR HEMOGLOBIN 36.2 pg (27.0-33.0); MEAN CORPUSCULAR HGB CONC 34.4 g/dl (32.0-36.5); MEAN CORPUSCULAR VOLUME 105.1 fl (80.0-96.0); MONO # 1.2 10^3/uL (0.0-0.8); NEUTROPHILS # 4.1 10^3/uL (1.5-8.5); PLATELET COUNT, AUTOMATED 115 10^3/uL (150-450); RED BLOOD COUNT 2.93 10^6/uL (4.30-6.10); WHITE BLOOD COUNT 7.3 10^3/uL (4.0-10.0)
[2023-10-19 09:58] LABS: INR 1.84; PROTHROMBIN TIME 20.6 SECONDS (12.5-14.5)
[2023-10-19 11:19] LABS: ALBUMIN 2.5 G/DL (3.2-5.2); BILIRUBIN,TOTAL 8.8 MG/DL (0.3-1.2); CALCIUM LEVEL 8.8 MG/DL (8.3-10.6); CREATININE FOR GFR 2.11 MG/DL (0.70-1.30); GLOMERULAR FILTRATION RATE 33.5 (>49); POTASSIUM SERUM 4.2 MMOL/L (3.5-5.1); TOTAL PROTEIN 5.6 G/DL (5.7-8.2)
== END ==
LOC: M LAB 08:55
PROVIDERS: ATTEND Physician Assistant Medical
DX: K70.31 Alcoholic cirrhosis of liver with ascites (principal)

== ENCOUNTER → 2023-10-19 | Outpatient (CLI) | payer MEDICARE, MEDICAID ==
[2023-10-19 09:05] VITALS: TEMP 97.1
[2023-10-19 09:59] VITALS: BP 92/57; O2SAT 100
== END ==
LOC: M IRPRO 08:53
PROVIDERS: ATTEND Internal Medicine Gastroenterology
DX: K70.31 Alcoholic cirrhosis of liver with ascites (principal)

== ENCOUNTER → 2023-10-25 | Outpatient (CLI) | payer MEDICARE, MEDICAID ==
[2023-10-25 13:31] LABS: BASO # 0.1 10^3/uL (0.0-0.2); BASO % 0.8 % (0.0-1.0); EOS # 0.3 10^3/uL (0.0-0.5); HEMATOCRIT 30.7 % (42.0-52.0); HEMOGLOBIN 10.7 g/dl (13.5-17.5); LYMPH # 2.1 10^3/uL (1.5-5.0); LYMPH % 23.2 % (24.0-44.0); MEAN CORPUSCULAR HEMOGLOBIN 36.3 pg (27.0-33.0); MEAN CORPUSCULAR HGB CONC 34.9 g/dl (32.0-36.5); MEAN CORPUSCULAR VOLUME 104.1 fl (80.0-96.0); MONO # 1.4 10^3/uL (0.0-0.8); MONO % 15.3 % (2.0-8.0); NEUTROPHILS % 56.7 % (36.0-66.0); RED BLOOD COUNT 2.95 10^6/uL (4.30-6.10); WHITE BLOOD COUNT 8.9 10^3/uL (4.0-10.0)
[2023-10-25 13:49] LABS: ALBUMIN 2.4 G/DL (3.2-5.2); BILIRUBIN,TOTAL 7.5 MG/DL (0.3-1.2); CALCIUM LEVEL 8.4 MG/DL (8.3-10.6); CREATININE FOR GFR 1.78 MG/DL (0.70-1.30); GLOMERULAR FILTRATION RATE 40.8 (>49); POTASSIUM SERUM 4.1 MMOL/L (3.5-5.1); TOTAL PROTEIN 5.6 G/DL (5.7-8.2)
[2023-10-25 14:26] LABS: PLATELET COUNT, AUTOMATED 91 10^3/uL (150-450)
== END ==
LOC: M LAB 12:04
PROVIDERS: ATTEND Physician Assistant Medical
DX: B37.0 Candidal stomatitis (principal); I50.32 Chronic diastolic (congestive) heart failure; K70.31 Alcoholic cirrhosis of liver with ascites

== ENCOUNTER → 2023-10-25 | Outpatient (CLI) | payer MEDICARE, MEDICAID ==
[~2023-10-25] MED LIST changes: +LACT10SO3 PO; +SIME180C25 PO
[2023-10-25 13:22] VITALS: BP 99/55; TEMP 96.8; O2SAT 100
[2023-10-25 13:29] VITALS: BP 102/53; O2SAT 100
[2023-10-25 13:35] VITALS: BP 104/57; O2SAT 99
[2023-10-25 13:40] VITALS: BP 94/54; TEMP 96.8; O2SAT 100
[2023-10-25 13:45] VITALS: BP 101/53; O2SAT 100
== END ==
LOC: M IRPRO 12:02
PROVIDERS: ATTEND Internal Medicine Gastroenterology
DX: K70.31 Alcoholic cirrhosis of liver with ascites (principal); I50.32 Chronic diastolic (congestive) heart failure; B37.0 Candidal stomatitis
CPT/HCPCS: 49083; 80053; 85025; 85049; 85055; 96365; P9047

== ENCOUNTER 2023-10-28 14:10 | Inpatient (IN) | payer MEDICARE, MEDICAID ==
[~2023-10-28] VITALS: Ht 182.9 cm; Wt 115.0 kg
[~2023-10-28 14:10] MED LIST changes: -LACT10SO3 PO; -SIME180C25 PO
[2023-10-28 14:58] LABS: BASO # 0.1 10^3/uL (0.0-0.2); BASO % 0.8 % (0.0-1.0); EOS # 0.2 10^3/uL (0.0-0.5); HEMATOCRIT 29.5 % (42.0-52.0); HEMOGLOBIN 10.4 g/dl (13.5-17.5); LYMPH # 2.2 10^3/uL (1.5-5.0); LYMPH % 32.6 % (24.0-44.0); MEAN CORPUSCULAR HEMOGLOBIN 36.5 pg (27.0-33.0); MEAN CORPUSCULAR HGB CONC 35.3 g/dl (32.0-36.5); MEAN CORPUSCULAR VOLUME 103.5 fl (80.0-96.0); MONO # 1.2 10^3/uL (0.0-0.8); MONO % 17.4 % (2.0-8.0); NEUTROPHILS % 45.4 % (36.0-66.0); RED BLOOD COUNT 2.85 10^6/uL (4.30-6.10); WHITE BLOOD COUNT 6.7 10^3/uL (4.0-10.0)
[2023-10-28 14:59] LABS: PLATELET COUNT, AUTOMATED 92 10^3/uL (150-450)
[2023-10-28 15:20] LABS: ALBUMIN 2.7 G/DL (3.2-5.2); BILIRUBIN,DIRECT 3.3 MG/DL (<0.4); CALCIUM LEVEL 8.4 MG/DL (8.3-10.6); CREATININE FOR GFR 1.96 MG/DL (0.70-1.30); GLOMERULAR FILTRATION RATE 36.5 (>49); POTASSIUM SERUM 4.7 MMOL/L (3.5-5.1); TOTAL PROTEIN 5.5 G/DL (5.7-8.2)
[2023-10-28 15:23] LABS: THYROID STIMULATING HORMONE 1.883 uIU/ML (0.55-4.78)
[2023-10-28 16:17] LABS: ETHYL ALCOHOL (ETHANOL) 0.007 % (0.000-0.010); MAGNESIUM LEVEL 2.8 MG/DL (1.8-2.4)
[2023-10-28 16:35] LABS: INR 1.76; PROTHROMBIN TIME 19.9 SECONDS (12.5-14.5)
[2023-10-28] MEDS: LACTULOSE 20GM/30ML SYRUP UDC PO ONE (17:05)
[2023-10-28] MEDS ORDERED: LACT10SO3 PO (18:18)
[2023-10-28] MEDS ORDERED: PANT40TA29 PO (18:18)
[2023-10-28] MEDS ORDERED: SIME180C25 PO (18:18)
[2023-10-28] MEDS ORDERED: XIFA550T PO (18:18)
[2023-10-28] MEDS ORDERED: ETHA25TA2 PO (18:18)
[2023-10-28] MEDS ORDERED: HOME MED LIST COMPLETE! XX SCH (18:20)
[2023-10-28 20:14] LABS: INR 1.72; PROTHROMBIN TIME 19.6 SECONDS (12.5-14.5)
[2023-10-28] MEDS: ADVAIR HFA 230/21MCG INHALER INH SCH (20:15)
[2023-10-28] MEDS: THIAMINE 100 MG TAB PO SCH (22:08)
[2023-10-28] MEDS: ETHACRYNIC ACID 25MG TAB PO SCH (22:08)
[2023-10-28] MEDS: rifAXIMin 550 MG TAB (XIFAXAN) PO SCH (22:08)
[2023-10-28] MEDS: CARVedilol 3.125 MG TAB PO SCH (22:09)
[2023-10-28] MEDS: HEPARIN SOD (PORCINE) 5000UNITS/ML 1ML VIAL/SYRINGE SQ SCH (22:10)
[2023-10-28 22:55] VITALS: BP 100/64; TEMP 97.5; O2SAT 100
[2023-10-29] MEDS: LACTULOSE 20GM/30ML SYRUP UDC PO SCH (00:07)
[2023-10-29 03:20] VITALS: BP 97/64; TEMP 97.3; O2SAT 99
[2023-10-29 07:01] LABS: HEMATOCRIT 28.5 % (42.0-52.0); HEMOGLOBIN 9.9 g/dl (13.5-17.5); MEAN CORPUSCULAR HEMOGLOBIN 36.3 pg (27.0-33.0); MEAN CORPUSCULAR HGB CONC 34.7 g/dl (32.0-36.5); MEAN CORPUSCULAR VOLUME 104.4 fl (80.0-96.0); PLATELET COUNT, AUTOMATED 93 10^3/uL (150-450); RED BLOOD COUNT 2.73 10^6/uL (4.30-6.10); WHITE BLOOD COUNT 8.1 10^3/uL (4.0-10.0)
[2023-10-29 07:17] LABS: ALBUMIN 2.7 G/DL (3.2-5.2); BILIRUBIN,TOTAL 9.9 MG/DL (0.3-1.2); CALCIUM LEVEL 8.7 MG/DL (8.3-10.6); CREATININE FOR GFR 1.99 MG/DL (0.70-1.30); GLOMERULAR FILTRATION RATE 35.9 (>49); POTASSIUM SERUM 3.9 MMOL/L (3.5-5.1); TOTAL PROTEIN 5.2 G/DL (5.7-8.2)
[2023-10-29] MEDS: PANTOPRAZOLE 40MG TAB (PROTONIX) PO SCH (08:06)
[2023-10-29] MEDS: ASPIRIN 81MG ENTERIC TABLET PO SCH (08:06)
[2023-10-29] MEDS: MULTIVITAMINS/MINERALS THERAP 1 TAB PO SCH (08:06)
[2023-10-29] MEDS: FOLIC ACID 1MG TAB PO SCH (08:06)
[2023-10-29] MEDS: MIDODRINE 5 MG TAB PO SCH (08:06)
[2023-10-29 08:09] VITALS: BP 95/60
[2023-10-29 12:00] VITALS: BP 114/62; TEMP 98.1; O2SAT 100
[2023-10-29] MEDS: VANICREAM MOISTURIZING SKIN CREAM 113GM TUBE TOP SCH (12:43)
[2023-10-29 16:55] VITALS: BP 115/62; TEMP 97.3; O2SAT 94
[2023-10-29 19:13] VITALS: BP 116/63; TEMP 97.3; O2SAT 92
[2023-10-29 20:50] VITALS: BP 106/63; TEMP 97.7; O2SAT 95
[2023-10-29] MEDS: ACETAMINOPHEN 325 MG TAB PO PRN (21:05)
[2023-10-29] MEDS: RAMELTEON 8 MG TAB (ROZEREM) PO PRN (21:05)
[2023-10-29] MEDS: diphenhydrAMINE 25MG CAP PO PRN (21:27)
[2023-10-30] VITALS (7 sets, daily range): BP systolic 96–108; BP diastolic 47–61; TEMP 97.7–97.9; O2SAT 100
[2023-10-30] MEDS: diphenhydrAMINE CREAM 30GM TOP PRN (00:16)
[2023-10-30 06:02] LABS: HEMATOCRIT 25.3 % (42.0-52.0); HEMOGLOBIN 8.9 g/dl (13.5-17.5); MEAN CORPUSCULAR HEMOGLOBIN 36.3 pg (27.0-33.0); MEAN CORPUSCULAR HGB CONC 35.2 g/dl (32.0-36.5); MEAN CORPUSCULAR VOLUME 103.3 fl (80.0-96.0); RED BLOOD COUNT 2.45 10^6/uL (4.30-6.10); WHITE BLOOD COUNT 7.8 10^3/uL (4.0-10.0)
[2023-10-30 06:07] LABS: PLATELET COUNT, AUTOMATED 78 10^3/uL (150-450)
[2023-10-30 06:29] LABS: ALBUMIN 2.7 G/DL (3.2-5.2); BILIRUBIN,TOTAL 7.7 MG/DL (0.3-1.2); CALCIUM LEVEL 8.7 MG/DL (8.3-10.6); CREATININE FOR GFR 2.21 MG/DL (0.70-1.30); GLOMERULAR FILTRATION RATE 31.8 (>49); POTASSIUM SERUM 3.9 MMOL/L (3.5-5.1); TOTAL PROTEIN 5.2 G/DL (5.7-8.2)
[2023-10-30] MEDS: LACTULOSE 20GM/30ML SYRUP UDC PO SCH (09:06)
[2023-10-31] VITALS (13 sets, daily range): BP systolic 6–117; BP diastolic 50–76; TEMP 97.2–97.9; O2SAT 96–100
[2023-10-31 06:23] LABS: HEMATOCRIT 24.7 % (42.0-52.0); HEMOGLOBIN 8.6 g/dl (13.5-17.5); MEAN CORPUSCULAR HEMOGLOBIN 36.1 pg (27.0-33.0); MEAN CORPUSCULAR HGB CONC 34.8 g/dl (32.0-36.5); MEAN CORPUSCULAR VOLUME 103.8 fl (80.0-96.0); RED BLOOD COUNT 2.38 10^6/uL (4.30-6.10); WHITE BLOOD COUNT 7.7 10^3/uL (4.0-10.0)
[2023-10-31 06:35] LABS: PLATELET COUNT, AUTOMATED 76 10^3/uL (150-450)
[2023-10-31 06:39] LABS: ALBUMIN 3.1 G/DL (3.2-5.2); BILIRUBIN,TOTAL 6.7 MG/DL (0.3-1.2); CALCIUM LEVEL 9.1 MG/DL (8.3-10.6); CREATININE FOR GFR 2.28 MG/DL (0.70-1.30); GLOMERULAR FILTRATION RATE 30.7 (>49); POTASSIUM SERUM 4.1 MMOL/L (3.5-5.1); TOTAL PROTEIN 5.3 G/DL (5.7-8.2)
[2023-11-01] VITALS (11 sets, daily range): BP systolic 91–118; BP diastolic 46–55; TEMP 97.5–98.1; O2SAT 97–100
[2023-11-01 06:17] LABS: HEMATOCRIT 23.4 % (42.0-52.0); HEMOGLOBIN 8.1 g/dl (13.5-17.5); MEAN CORPUSCULAR HGB CONC 34.6 g/dl (32.0-36.5); RED BLOOD COUNT 2.25 10^6/uL (4.30-6.10); WHITE BLOOD COUNT 8.2 10^3/uL (4.0-10.0)
[2023-11-01 06:33] LABS: PLATELET COUNT, AUTOMATED 52 10^3/uL (150-450)
[2023-11-01 06:40] LABS: ALBUMIN 3.3 G/DL (3.2-5.2); CREATININE FOR GFR 2.08 MG/DL (0.70-1.30); GLOMERULAR FILTRATION RATE 34.1 (>49); POTASSIUM SERUM 4.1 MMOL/L (3.5-5.1); TOTAL PROTEIN 5.3 G/DL (5.7-8.2)
[2023-11-01] MEDS: LACTULOSE 20GM/30ML SYRUP UDC PO SCH (08:34)
[2023-11-01] MEDS: oxyCODONE 5MG TAB PO PRN (20:09)
[2023-11-02] VITALS (13 sets, daily range): BP systolic 90–125; BP diastolic 42–66; TEMP 97.7–98.4; O2SAT 98–100
[2023-11-02 06:10] LABS: BASO % 0.3 % (0.0-1.0); EOS # 0.2 10^3/uL (0.0-0.5); HEMATOCRIT 22.1 % (42.0-52.0); HEMOGLOBIN 7.7 g/dl (13.5-17.5); LYMPH # 1.5 10^3/uL (1.5-5.0); LYMPH % 20.2 % (24.0-44.0); MEAN CORPUSCULAR HEMOGLOBIN 35.6 pg (27.0-33.0); MEAN CORPUSCULAR HGB CONC 34.8 g/dl (32.0-36.5); MEAN CORPUSCULAR VOLUME 102.3 fl (80.0-96.0); MONO # 1.1 10^3/uL (0.0-0.8); MONO % 14.7 % (2.0-8.0); NEUTROPHILS # 4.6 10^3/uL (1.5-8.5); NEUTROPHILS % 61.9 % (36.0-66.0); RED BLOOD COUNT 2.16 10^6/uL (4.30-6.10); WHITE BLOOD COUNT 7.4 10^3/uL (4.0-10.0)
[2023-11-02 06:11] LABS: PLATELET COUNT, AUTOMATED 48 10^3/uL (150-450)
[2023-11-02 06:37] LABS: BLOOD UREA NITROGEN 53 MG/DL (9-23); CALCIUM LEVEL 8.5 MG/DL (8.3-10.6); CARBON DIOXIDE LEVEL 25 MMOL/L (20-31); CHLORIDE LEVEL 96 MMOL/L (98-107); CREATININE FOR GFR 1.98 MG/DL (0.70-1.30); GLOMERULAR FILTRATION RATE 36.1 (>49); GLUCOSE, FASTING 90 MG/DL (74-106); POTASSIUM SERUM 4.1 MMOL/L (3.5-5.1); SODIUM LEVEL 128 MMOL/L (136-145)
[2023-11-02] MEDS: SPIRONOLACTONE 12.5MG PER 1/2 TABLET PO SCH (10:20)
[2023-11-02] MEDS: LACTULOSE 20GM/30ML SYRUP UDC PO SCH (10:44)
[2023-11-02] MEDS: ALBUTEROL SULFATE 2.5MG/0.5ML INH NEB SOLN NEB ONE (11:09)
[2023-11-02] MEDS: MIDODRINE 5 MG TAB PO SCH (11:11)
[2023-11-02 15:25] LABS: IRON (FE) 102 UG/DL (65-175)
[2023-11-02 15:26] LABS: PERCENT SATURATION 71.3 % (19.7-50.0); TOTAL IRON BINDING CAPACITY 143 UG/DL (250-425)
[2023-11-02 15:28] LABS: FERRITIN 331.8 NG/ML (10.5-307.3); FOLATE > 24.0 NG/ML (>5.4); VITAMIN B12 LEVEL > 2000 PG/ML (211-911)
[2023-11-03] VITALS (7 sets, daily range): BP systolic 91–112; BP diastolic 41–69; TEMP 97.7–98.1; O2SAT 95–100
[2023-11-03 06:32] LABS: BASO % 0.3 % (0.0-1.0); EOS # 0.2 10^3/uL (0.0-0.5); EOS % 2.2 % (0.0-3.0); HEMATOCRIT 23.4 % (42.0-52.0); HEMOGLOBIN 8.4 g/dl (13.5-17.5); LYMPH # 1.5 10^3/uL (1.5-5.0); LYMPH % 22.1 % (24.0-44.0); MEAN CORPUSCULAR HEMOGLOBIN 36.2 pg (27.0-33.0); MEAN CORPUSCULAR HGB CONC 35.9 g/dl (32.0-36.5); MEAN CORPUSCULAR VOLUME 100.9 fl (80.0-96.0); MONO % 14.4 % (2.0-8.0); NEUTROPHILS # 4.1 10^3/uL (1.5-8.5); NEUTROPHILS % 60.1 % (36.0-66.0); RED BLOOD COUNT 2.32 10^6/uL (4.30-6.10); WHITE BLOOD COUNT 6.9 10^3/uL (4.0-10.0)
[2023-11-03 06:34] LABS: PLATELET COUNT, AUTOMATED 39 10^3/uL (150-450)
[2023-11-03 06:54] LABS: CALCIUM LEVEL 8.4 MG/DL (8.3-10.6); CREATININE FOR GFR 1.81 MG/DL (0.70-1.30)
[2023-11-03] MEDS ORDERED: LIDOCAINE 1% MDV 20ML VIAL As Ordered ONE (14:17)
[2023-11-03] MEDS ORDERED: HEPARIN 1,000UNITS/ML 10ML VIAL (FOR RADIOLOGY & DIALYSIS ONLY) As Ordered ONE (14:17)
[2023-11-03] MEDS: ALBUTEROL 90 MCG/ACT 8GM HFA INHALER INH PRN (19:17)
[2023-11-04 04:00] VITALS: BP 154/92; TEMP 97.7; O2SAT 96
[2023-11-04 05:31] LABS: BASO % 0.4 % (0.0-1.0); EOS # 0.2 10^3/uL (0.0-0.5); EOS % 2.6 % (0.0-3.0); HEMATOCRIT 24.5 % (42.0-52.0); HEMOGLOBIN 8.7 g/dl (13.5-17.5); LYMPH # 1.6 10^3/uL (1.5-5.0); MEAN CORPUSCULAR HEMOGLOBIN 35.7 pg (27.0-33.0); MEAN CORPUSCULAR HGB CONC 35.5 g/dl (32.0-36.5); MEAN CORPUSCULAR VOLUME 100.4 fl (80.0-96.0); MONO % 14.8 % (2.0-8.0); NEUTROPHILS # 3.9 10^3/uL (1.5-8.5); NEUTROPHILS % 57.2 % (36.0-66.0); RED BLOOD COUNT 2.44 10^6/uL (4.30-6.10); WHITE BLOOD COUNT 6.8 10^3/uL (4.0-10.0)
[2023-11-04 05:37] LABS: PLATELET COUNT, AUTOMATED 39 10^3/uL (150-450)
[2023-11-04 05:55] LABS: CALCIUM LEVEL 8.8 MG/DL (8.3-10.6); CREATININE FOR GFR 1.56 MG/DL (0.70-1.30); GLOMERULAR FILTRATION RATE 47.5 (>49); POTASSIUM SERUM 3.5 MMOL/L (3.5-5.1)
[2023-11-04] MEDS: SODIUM CHLORIDE 0.9% INJ 10 ML SYR IV SCH (05:56)
[2023-11-04] MEDS: SODIUM CHLORIDE 0.9% INJ 10 ML SYR IV PRN (05:56)
[2023-11-04] MEDS: SPIRONOLACTONE 25 MG TAB PO SCH (08:42)
[2023-11-04 12:39] VITALS: BP 163/80; TEMP 97; O2SAT 100
[2023-11-04] MEDS: diphenhydrAMINE 25MG CAP PO PRN (13:30)
[2023-11-04 20:02] VITALS: BP 119/57; TEMP 97.7; O2SAT 100
[2023-11-05 03:21] VITALS: BP 111/73; TEMP 97.7; O2SAT 100
[2023-11-05 07:06] LABS: BASO % 0.4 % (0.0-1.0); EOS # 0.2 10^3/uL (0.0-0.5); EOS % 3.1 % (0.0-3.0); HEMATOCRIT 25.4 % (42.0-52.0); HEMOGLOBIN 8.8 g/dl (13.5-17.5); LYMPH # 1.8 10^3/uL (1.5-5.0); LYMPH % 23.1 % (24.0-44.0); MEAN CORPUSCULAR HEMOGLOBIN 35.3 pg (27.0-33.0); MEAN CORPUSCULAR HGB CONC 34.6 g/dl (32.0-36.5); MONO # 1.1 10^3/uL (0.0-0.8); MONO % 14.3 % (2.0-8.0); NEUTROPHILS # 4.5 10^3/uL (1.5-8.5); NEUTROPHILS % 57.9 % (36.0-66.0); RED BLOOD COUNT 2.49 10^6/uL (4.30-6.10); WHITE BLOOD COUNT 7.7 10^3/uL (4.0-10.0)
[2023-11-05 07:16] LABS: PLATELET COUNT, AUTOMATED 40 10^3/uL (150-450)
[2023-11-05 07:21] LABS: CALCIUM LEVEL 8.5 MG/DL (8.3-10.6); CREATININE FOR GFR 1.45 MG/DL (0.70-1.30); GLOMERULAR FILTRATION RATE 51.7 (>49); POTASSIUM SERUM 3.4 MMOL/L (3.5-5.1)
[2023-11-05 12:00] VITALS: BP 122/84; TEMP 97.5; O2SAT 99
[2023-11-05] MEDS: POTASSIUM CHLORIDE 10MEQ SR TABLET PO ONE (12:30)
[2023-11-05] MEDS: LACTULOSE 20GM/30ML SYRUP UDC PO SCH (17:03)
[2023-11-05 19:45] VITALS: BP 140/84; TEMP 98.1; O2SAT 100
[2023-11-06 04:41] VITALS: BP 110/66; TEMP 97.5; O2SAT 100
[2023-11-06 07:51] LABS: BASO % 0.4 % (0.0-1.0); EOS # 0.2 10^3/uL (0.0-0.5); EOS % 2.9 % (0.0-3.0); HEMATOCRIT 24.5 % (42.0-52.0); HEMOGLOBIN 8.7 g/dl (13.5-17.5); LYMPH # 1.8 10^3/uL (1.5-5.0); MEAN CORPUSCULAR HEMOGLOBIN 36.1 pg (27.0-33.0); MEAN CORPUSCULAR HGB CONC 35.5 g/dl (32.0-36.5); MEAN CORPUSCULAR VOLUME 101.7 fl (80.0-96.0); MONO % 12.8 % (2.0-8.0); NEUTROPHILS # 4.7 10^3/uL (1.5-8.5); NEUTROPHILS % 59.4 % (36.0-66.0); RED BLOOD COUNT 2.41 10^6/uL (4.30-6.10)
[2023-11-06 08:05] LABS: CALCIUM LEVEL 8.7 MG/DL (8.3-10.6); CREATININE FOR GFR 1.5 MG/DL (0.70-1.30); GLOMERULAR FILTRATION RATE 49.7 (>49); POTASSIUM SERUM 3.8 MMOL/L (3.5-5.1)
[2023-11-06 08:06] LABS: ALBUMIN 2.9 G/DL (3.2-5.2); CALCIUM LEVEL 8.4 MG/DL (8.3-10.6); CREATININE FOR GFR 1.52 MG/DL (0.70-1.30); GLOMERULAR FILTRATION RATE 48.9 (>49); MAGNESIUM LEVEL 1.8 MG/DL (1.8-2.4); PHOSPHORUS LEVEL 4.2 MG/DL (2.4-5.1); POTASSIUM SERUM 3.7 MMOL/L (3.5-5.1)
[2023-11-06 08:21] LABS: PLATELET COUNT, AUTOMATED 43 10^3/uL (150-450)
[2023-11-06 12:16] VITALS: BP 113/69; TEMP 97.7; O2SAT 100
[2023-11-06 19:31] VITALS: BP 110/60; TEMP 98.2; O2SAT 99
[2023-11-06] MEDS: LACTULOSE 20GM/30ML SYRUP UDC PO SCH (20:44)
[2023-11-07 03:58] VITALS: BP 120/74; TEMP 97.2; O2SAT 97
[2023-11-07 05:53] LABS: BASO % 0.4 % (0.0-1.0); EOS # 0.2 10^3/uL (0.0-0.5); EOS % 1.9 % (0.0-3.0); HEMATOCRIT 24.8 % (42.0-52.0); HEMOGLOBIN 8.6 g/dl (13.5-17.5); LYMPH # 1.7 10^3/uL (1.5-5.0); LYMPH % 21.7 % (24.0-44.0); MEAN CORPUSCULAR HEMOGLOBIN 35.2 pg (27.0-33.0); MEAN CORPUSCULAR HGB CONC 34.7 g/dl (32.0-36.5); MEAN CORPUSCULAR VOLUME 101.6 fl (80.0-96.0); MONO # 0.9 10^3/uL (0.0-0.8); MONO % 11.5 % (2.0-8.0); NEUTROPHILS # 5.1 10^3/uL (1.5-8.5); NEUTROPHILS % 62.9 % (36.0-66.0); RED BLOOD COUNT 2.44 10^6/uL (4.30-6.10)
[2023-11-07 05:55] LABS: PLATELET COUNT, AUTOMATED 51 10^3/uL (150-450)
[2023-11-07 06:11] LABS: CALCIUM LEVEL 8.7 MG/DL (8.3-10.6); CREATININE FOR GFR 1.55 MG/DL (0.70-1.30); GLOMERULAR FILTRATION RATE 47.8 (>49); POTASSIUM SERUM 4.1 MMOL/L (3.5-5.1)
[2023-11-07 12:05] VITALS: BP 106/63; TEMP 97.7; O2SAT 100
[2023-11-07 19:35] VITALS: BP 105/63; TEMP 97.9; O2SAT 99
[2023-11-08] VITALS (9 sets, daily range): BP systolic 108–139; BP diastolic 56–83; TEMP 97.5–97.7; O2SAT 95–100
[2023-11-08 06:34] LABS: CALCIUM LEVEL 8.6 MG/DL (8.3-10.6); CREATININE FOR GFR 1.62 MG/DL (0.70-1.30); GLOMERULAR FILTRATION RATE 45.5 (>49); POTASSIUM SERUM 4.1 MMOL/L (3.5-5.1)
[2023-11-08 06:45] LABS: BASO % 0.3 % (0.0-1.0); EOS # 0.2 10^3/uL (0.0-0.5); EOS % 1.8 % (0.0-3.0); HEMATOCRIT 25.8 % (42.0-52.0); HEMOGLOBIN 8.9 g/dl (13.5-17.5); LYMPH # 2.2 10^3/uL (1.5-5.0); MEAN CORPUSCULAR HEMOGLOBIN 35.3 pg (27.0-33.0); MEAN CORPUSCULAR HGB CONC 34.5 g/dl (32.0-36.5); MEAN CORPUSCULAR VOLUME 102.4 fl (80.0-96.0); MONO # 1.3 10^3/uL (0.0-0.8); MONO % 12.8 % (2.0-8.0); NEUTROPHILS # 6.4 10^3/uL (1.5-8.5); RED BLOOD COUNT 2.52 10^6/uL (4.30-6.10); WHITE BLOOD COUNT 10.3 10^3/uL (4.0-10.0)
[2023-11-08 06:47] LABS: PLATELET COUNT, AUTOMATED 64 10^3/uL (150-450)
[2023-11-09 05:24] VITALS: BP 119/68; TEMP 97.7; O2SAT 100
[2023-11-09 06:41] LABS: HEMATOCRIT 24.9 % (42.0-52.0); HEMOGLOBIN 8.5 g/dl (13.5-17.5); MEAN CORPUSCULAR HEMOGLOBIN 35.6 pg (27.0-33.0); MEAN CORPUSCULAR HGB CONC 34.1 g/dl (32.0-36.5); MEAN CORPUSCULAR VOLUME 104.2 fl (80.0-96.0); RED BLOOD COUNT 2.39 10^6/uL (4.30-6.10); WHITE BLOOD COUNT 9.4 10^3/uL (4.0-10.0)
[2023-11-09 06:51] LABS: PLATELET COUNT, AUTOMATED 58 10^3/uL (150-450)
[2023-11-09 07:00] LABS: ALBUMIN 3.3 G/DL (3.2-5.2); BILIRUBIN,TOTAL 6.7 MG/DL (0.3-1.2); CALCIUM LEVEL 9.1 MG/DL (8.3-10.6); CREATININE FOR GFR 1.56 MG/DL (0.70-1.30); GLOMERULAR FILTRATION RATE 47.5 (>49); POTASSIUM SERUM 4.1 MMOL/L (3.5-5.1); TOTAL PROTEIN 5.6 G/DL (5.7-8.2)
[2023-11-09] MEDS ORDERED: ALDA25TA2 PO (08:03)
[2023-11-09] MEDS ORDERED: DIPHCR TOP (08:03)
[2023-11-09] MEDS ORDERED: MIDO5TA PO (08:03)
[2023-11-09] MEDS ORDERED: NEOSPORIN OINT 0.9 GM PKT TOP ONE (12:00)
== END 2023-11-09 11:46 | disposition home or self-care (01) | DRG 432 ==
LOC: EDBD 14:10 → M ED 14:10 → M ED INP 17:34 → M MSPAV 22:55 → OBSVTOIN 10-30 15:29 → M MSPAV 11-02 18:34
PROVIDERS: ADMIT Internal Medicine; ATTEND Internal Medicine
PROC: 30233J1 Transfusion of Nonautologous Serum Albumin into Peripheral Vein, Percutaneous Approach (ICD-10-PCS; principal; 2023-10-29)
PROC: 0W9G3ZZ Drainage of Peritoneal Cavity, Percutaneous Approach (ICD-10-PCS; 2023-11-01)
PROC: 30233N1 Transfusion of Nonautologous Red Blood Cells into Peripheral Vein, Percutaneous Approach (ICD-10-PCS; 2023-11-02)
DX: K70.31 Alcoholic cirrhosis of liver with ascites (principal); U07.1 COVID-19; G93.41 Metabolic encephalopathy; E80.3 Defects of catalase and peroxidase; I50.32 Chronic diastolic (congestive) heart failure; E87.1 Hypo-osmolality and hyponatremia; I13.0 Hypertensive heart and chronic kidney disease with heart failure and stage 1 through stage 4 chronic kidney disease, or unspecified chronic kidney disease; E72.20 Disorder of urea cycle metabolism, unspecified; E87.20 Acidosis, unspecified; Z66 Do not resuscitate; K76.82 Hepatic encephalopathy; N18.9 Chronic kidney disease, unspecified; I48.91 Unspecified atrial fibrillation; K21.9 Gastro-esophageal reflux disease without esophagitis; E78.5 Hyperlipidemia, unspecified; G47.33 Obstructive sleep apnea (adult) (pediatric); R21 Rash and other nonspecific skin eruption; I25.10 Atherosclerotic heart disease of native coronary artery without angina pectoris; D64.9 Anemia, unspecified; D69.6 Thrombocytopenia, unspecified; M25.512 Pain in left shoulder; I95.9 Hypotension, unspecified; M19.90 Unspecified osteoarthritis, unspecified site; F32.9 Major depressive disorder, single episode, unspecified; Z95.0 Presence of cardiac pacemaker; Z86.73 Personal history of transient ischemic attack (TIA), and cerebral infarction without residual deficits; Z98.84 Bariatric surgery status; Z98.49 Cataract extraction status, unspecified eye; Z87.891 Personal history of nicotine dependence

== ENCOUNTER → 2023-11-15 | Outpatient (CLI) | payer MEDICARE, MEDICAID ==
[~2023-11-15] MED LIST changes: +DIPHCR TOP; +LACT10SO3 PO; +SIME180C25 PO
[2023-11-15 10:38] LABS: BASO # 0.1 10^3/uL (0.0-0.2); BASO % 0.4 % (0.0-1.0); EOS # 0.1 10^3/uL (0.0-0.5); EOS % 0.9 % (0.0-3.0); HEMATOCRIT 25.6 % (42.0-52.0); HEMOGLOBIN 8.8 g/dl (13.5-17.5); LYMPH # 1.4 10^3/uL (1.5-5.0); LYMPH % 10.6 % (24.0-44.0); MEAN CORPUSCULAR HGB CONC 34.4 g/dl (32.0-36.5); MEAN CORPUSCULAR VOLUME 107.6 fl (80.0-96.0); MONO # 1.6 10^3/uL (0.0-0.8); MONO % 11.9 % (2.0-8.0); NEUTROPHILS # 9.9 10^3/uL (1.5-8.5); NEUTROPHILS % 74.2 % (36.0-66.0); RED BLOOD COUNT 2.38 10^6/uL (4.30-6.10); WHITE BLOOD COUNT 13.3 10^3/uL (4.0-10.0)
[2023-11-15 10:39] LABS: PLATELET COUNT, AUTOMATED 99 10^3/uL (150-450)
[2023-11-15 11:09] LABS: ALBUMIN 2.8 G/DL (3.2-5.2); BILIRUBIN,TOTAL 11.9 MG/DL (0.3-1.2); CALCIUM LEVEL 8.9 MG/DL (8.3-10.6); CREATININE FOR GFR 1.7 MG/DL (0.70-1.30); POTASSIUM SERUM 4.1 MMOL/L (3.5-5.1); TOTAL PROTEIN 5.8 G/DL (5.7-8.2)
== END ==
LOC: M LAB 10:02
PROVIDERS: ATTEND Physician Assistant Medical
DX: B37.0 Candidal stomatitis (principal); I50.32 Chronic diastolic (congestive) heart failure; K70.31 Alcoholic cirrhosis of liver with ascites

== ENCOUNTER → 2023-11-15 | Outpatient (CLI) | payer MEDICARE, MEDICAID ==
[2023-11-15 10:10] VITALS: TEMP 97.8
[2023-11-15 10:56] VITALS: BP 95/52; O2SAT 100
== END ==
LOC: M IRPRO 10:00
PROVIDERS: ATTEND Internal Medicine Gastroenterology
DX: R18.8 Other ascites (principal); K74.60 Unspecified cirrhosis of liver; B37.0 Candidal stomatitis; K70.31 Alcoholic cirrhosis of liver with ascites; I50.32 Chronic diastolic (congestive) heart failure

== ENCOUNTER → 2023-11-18 | Outpatient (CLI) | payer MEDICARE, MEDICAID ==
[~2023-11-18] MED LIST changes: +MIDO10TA PO; +SPIR-10 PO
[2023-11-18 11:09] LABS: HEMATOCRIT 27.2 % (42.0-52.0); HEMOGLOBIN 9.4 g/dl (13.5-17.5); MEAN CORPUSCULAR HEMOGLOBIN 36.7 pg (27.0-33.0); MEAN CORPUSCULAR HGB CONC 34.6 g/dl (32.0-36.5); MEAN CORPUSCULAR VOLUME 106.3 fl (80.0-96.0); PLATELET COUNT, AUTOMATED 103 10^3/uL (150-450); RED BLOOD COUNT 2.56 10^6/uL (4.30-6.10); WHITE BLOOD COUNT 7.5 10^3/uL (4.0-10.0)
[2023-11-18 11:38] LABS: ALBUMIN 2.7 G/DL (3.2-5.2); CALCIUM LEVEL 8.9 MG/DL (8.3-10.6); CREATININE FOR GFR 2.03 MG/DL (0.70-1.30); POTASSIUM SERUM 3.9 MMOL/L (3.5-5.1)
== END ==
LOC: M LAB 10:30
DX: K70.31 Alcoholic cirrhosis of liver with ascites (principal)

== ENCOUNTER → 2023-11-18 | Outpatient (CLI) | payer MEDICARE, MEDICAID | LOC: M LAB 10:33 | PROVIDERS: ATTEND Internal Medicine Cardiovascular Disease | DX: I50.32 Chronic diastolic (congestive) heart failure (principal); E66.9 Obesity, unspecified ==

== ENCOUNTER → 2023-11-18 | Outpatient (REF) | payer MEDICARE, MEDICAID | LOC: M SFHCADAM 09:56 | DX: K70.31 Alcoholic cirrhosis of liver with ascites (principal) ==

== ENCOUNTER 2023-11-22 11:37 | Inpatient (IN) | payer MEDICARE, MEDICAID ==
[~2023-11-22] VITALS: Ht 180.3 cm; Wt 106.4 kg
[~2023-11-22 11:37] MED LIST changes: -MIDO10TA PO; -SPIR-10 PO
[2023-11-22 12:24] LABS: VENOUS BASE EXCESS 2.4 (-2.0-2.0); VENOUS HCO3 27.2 MMOL/L (23.0-27.0); VENOUS O2 SATURATION 62.1 % (60.0-80.0); VENOUS PARTIAL PRESSURE CO2 43.2 mmHg (38.0-50.0); VENOUS PARTIAL PRESSURE O2 35.3 mmHg (30.0-50.0); VENOUS PH 7.417 UNITS (7.330-7.430); VENOUS STANDARD HCO3 25.9 MMOL/L; VENOUS TOTAL CO2 28.5 MMOL/L (24.0-28.0)
[2023-11-22 12:36] LABS: BASO % 0.4 % (0.0-1.0); EOS # 0.1 10^3/uL (0.0-0.5); EOS % 1.1 % (0.0-3.0); HEMATOCRIT 27.8 % (42.0-52.0); HEMOGLOBIN 9.5 g/dl (13.5-17.5); LYMPH # 1.6 10^3/uL (1.5-5.0); LYMPH % 17.1 % (24.0-44.0); MEAN CORPUSCULAR HGB CONC 34.2 g/dl (32.0-36.5); MEAN CORPUSCULAR VOLUME 108.2 fl (80.0-96.0); MONO % 10.7 % (2.0-8.0); NEUTROPHILS # 6.5 10^3/uL (1.5-8.5); NEUTROPHILS % 68.7 % (36.0-66.0); RED BLOOD COUNT 2.57 10^6/uL (4.30-6.10); WHITE BLOOD COUNT 9.5 10^3/uL (4.0-10.0)
[2023-11-22 12:50] LABS: ETHYL ALCOHOL (ETHANOL) < 0.003 % (0.000-0.010)
[2023-11-22 12:55] LABS: OSMOLALITY SERUM 289 MOSM/KG (280-301)
[2023-11-22 13:05] LABS: ALBUMIN 2.6 G/DL (3.2-5.2); ALKALINE PHOSPHATASE 111 U/L (46-116); ALT/SGPT 38 U/L (7.0-40); AST/SGOT 65 U/L (<34); BILIRUBIN,DIRECT 6.2 MG/DL (<0.4); BILIRUBIN,TOTAL 11.2 MG/DL (0.3-1.2); BLOOD UREA NITROGEN 49 MG/DL (9-23); CALCIUM LEVEL 9.1 MG/DL (8.3-10.6); CARBON DIOXIDE LEVEL 26 MMOL/L (20-31); CHLORIDE LEVEL 95 MMOL/L (98-107); CREATININE FOR GFR 2.08 MG/DL (0.70-1.30); GLOMERULAR FILTRATION RATE 34.1 (>49); GLUCOSE, FASTING 90 MG/DL (74-106); POTASSIUM SERUM 5.2 MMOL/L (3.5-5.1); SODIUM LEVEL 130 MMOL/L (136-145); THYROID STIMULATING HORMONE 1.547 uIU/ML (0.55-4.78)
[2023-11-22] MEDS: NS 500 ML IV ONE (13:20)
[2023-11-22 13:26] LABS: PLATELET COUNT, AUTOMATED 93 10^3/uL (150-450)
[2023-11-22] MEDS: LACTULOSE 20GM/30ML SYRUP UDC PO ONE (13:35)
[2023-11-22] MEDS ORDERED: SPIR-10 PO (13:36)
[2023-11-22] MEDS ORDERED: MIDO10TA PO (13:36)
[2023-11-22] MEDS ORDERED: HOME MED LIST COMPLETE! XX SCH (13:40)
[2023-11-22 13:43] LABS: INR 2.12
[2023-11-22] MEDS ORDERED: diphenhydrAMINE 25MG CAP PO PRN (14:30)
[2023-11-22] MEDS ORDERED: MAALOX 30 ML SUSP *UDC PO PRN (14:30)
[2023-11-22] MEDS ORDERED: ALBUTEROL 90 MCG/ACT 8GM HFA INHALER INH PRN (14:30)
[2023-11-22] MEDS: MAGNESIUM OXIDE 400MG TAB (MAG-OX) PO ONE (15:17)
[2023-11-22] MEDS: MULTIVITAMINS/MINERALS THERAP 1 TAB PO ONE (15:17)
[2023-11-22] MEDS: LACTULOSE 20GM/30ML SYRUP UDC PO SCH (17:13)
[2023-11-22] MEDS: SPIRONOLACTONE 25 MG TAB PO SCH (17:13)
[2023-11-22] MEDS: MIDODRINE 5 MG TAB PO SCH (17:14)
[2023-11-22 17:15] VITALS: BP 98/55; TEMP 96.6; O2SAT 98
[2023-11-22 19:40] VITALS: BP 117/56; TEMP 97.5; O2SAT 94
[2023-11-22] MEDS: ADVAIR HFA 230/21MCG INHALER INH SCH (19:46)
[2023-11-22] MEDS: rifAXIMin 550 MG TAB (XIFAXAN) PO SCH (20:57)
[2023-11-22] MEDS: CARVedilol 3.125 MG TAB PO SCH (20:57)
[2023-11-22] MEDS: THIAMINE 100 MG TAB PO SCH (20:57)
[2023-11-22 21:56] LABS: CALCIUM LEVEL 8.6 MG/DL (8.3-10.6); CREATININE FOR GFR 2.09 MG/DL (0.70-1.30); GLOMERULAR FILTRATION RATE 33.9 (>49)
[2023-11-22 23:29] VITALS: BP 108/52; TEMP 97.1; O2SAT 97
[2023-11-23] VITALS (7 sets, daily range): BP systolic 95–111; BP diastolic 55–67; TEMP 96.7–97.6; O2SAT 98–100
[2023-11-23 05:52] LABS: ALBUMIN 2.1 G/DL (3.2-5.2); BILIRUBIN,TOTAL 9.8 MG/DL (0.3-1.2); CALCIUM LEVEL 8.5 MG/DL (8.3-10.6); CREATININE FOR GFR 2.14 MG/DL (0.70-1.30); POTASSIUM SERUM 5.3 MMOL/L (3.5-5.1); TOTAL PROTEIN 4.9 G/DL (5.7-8.2)
[2023-11-23 07:17] LABS: BASO # 0.1 10^3/uL (0.0-0.2); BASO % 0.6 % (0.0-1.0); EOS # 0.1 10^3/uL (0.0-0.5); HEMATOCRIT 25.9 % (42.0-52.0); HEMOGLOBIN 8.9 g/dl (13.5-17.5); LYMPH % 22.7 % (24.0-44.0); MEAN CORPUSCULAR HEMOGLOBIN 36.8 pg (27.0-33.0); MEAN CORPUSCULAR HGB CONC 34.4 g/dl (32.0-36.5); MONO % 11.1 % (2.0-8.0); NEUTROPHILS # 5.5 10^3/uL (1.5-8.5); RED BLOOD COUNT 2.42 10^6/uL (4.30-6.10); WHITE BLOOD COUNT 8.7 10^3/uL (4.0-10.0)
[2023-11-23 07:19] LABS: PLATELET COUNT, AUTOMATED 90 10^3/uL (150-450)
[2023-11-23] MEDS: PANTOPRAZOLE 40MG TAB (PROTONIX) PO SCH (10:10)
[2023-11-23] MEDS: ETHACRYNIC ACID 25MG TAB PO SCH (10:10)
[2023-11-23] MEDS: ASPIRIN 81MG ENTERIC TABLET PO SCH (10:11)
[2023-11-23] MEDS: FOLIC ACID 1MG TAB PO SCH (10:11)
[2023-11-23 14:20] LABS: CALCIUM LEVEL 8.9 MG/DL (8.3-10.6); CREATININE FOR GFR 2.17 MG/DL (0.70-1.30); GLOMERULAR FILTRATION RATE 32.5 (>49); POTASSIUM SERUM 4.5 MMOL/L (3.5-5.1)
[2023-11-23] MEDS: ACETAMINOPHEN 325 MG TAB PO PRN (18:22)
[2023-11-23] MEDS: SIMETHICONE 80MG CHEW TAB PO PRN (18:22)
[2023-11-23] MEDS: LACTULOSE 20GM/30ML SYRUP UDC PR ONE (20:57)
[2023-11-24] VITALS (7 sets, daily range): BP systolic 96–156; BP diastolic 50–84; TEMP 96.8–97.6; O2SAT 20–100
[2023-11-24 06:48] LABS: BASO # 0.1 10^3/uL (0.0-0.2); BASO % 0.5 % (0.0-1.0); EOS # 0.1 10^3/uL (0.0-0.5); EOS % 0.9 % (0.0-3.0); HEMATOCRIT 25.9 % (42.0-52.0); HEMOGLOBIN 8.7 g/dl (13.5-17.5); LYMPH # 2.2 10^3/uL (1.5-5.0); LYMPH % 21.8 % (24.0-44.0); MEAN CORPUSCULAR HEMOGLOBIN 36.6 pg (27.0-33.0); MEAN CORPUSCULAR HGB CONC 33.6 g/dl (32.0-36.5); MEAN CORPUSCULAR VOLUME 108.8 fl (80.0-96.0); MONO # 1.2 10^3/uL (0.0-0.8); MONO % 11.9 % (2.0-8.0); NEUTROPHILS # 6.5 10^3/uL (1.5-8.5); NEUTROPHILS % 63.7 % (36.0-66.0); PLATELET COUNT, AUTOMATED 92 10^3/uL (150-450); RED BLOOD COUNT 2.38 10^6/uL (4.30-6.10); WHITE BLOOD COUNT 10.2 10^3/uL (4.0-10.0)
[2023-11-24 07:06] LABS: CREATININE FOR GFR 2.35 MG/DL (0.70-1.30); GLOMERULAR FILTRATION RATE 29.6 (>49); MAGNESIUM LEVEL 2.7 MG/DL (1.8-2.4); POTASSIUM SERUM 4.4 MMOL/L (3.5-5.1)
[2023-11-24] MEDS: PANTOPRAZOLE 40MG VIAL IV SCH (08:33)
[2023-11-24] MEDS: ASPIRIN 81MG CHEW TABLET PO SCH (08:33)
[2023-11-24] MEDS: diphenhydrAMINE CREAM 30GM TOP PRN (12:18)
[2023-11-24] MEDS: LACTULOSE 20GM/30ML SYRUP UDC PR ONE (18:32)
[2023-11-25 04:10] VITALS: BP 114/65; TEMP 96.9; O2SAT 100
[2023-11-25 05:59] LABS: BASO # 0.1 10^3/uL (0.0-0.2); BASO % 0.5 % (0.0-1.0); EOS # 0.1 10^3/uL (0.0-0.5); EOS % 0.9 % (0.0-3.0); HEMATOCRIT 23.7 % (42.0-52.0); HEMOGLOBIN 8.1 g/dl (13.5-17.5); LYMPH # 2.2 10^3/uL (1.5-5.0); LYMPH % 19.8 % (24.0-44.0); MEAN CORPUSCULAR HEMOGLOBIN 37.2 pg (27.0-33.0); MEAN CORPUSCULAR HGB CONC 34.2 g/dl (32.0-36.5); MEAN CORPUSCULAR VOLUME 108.7 fl (80.0-96.0); MONO # 1.4 10^3/uL (0.0-0.8); MONO % 12.3 % (2.0-8.0); NEUTROPHILS # 7.2 10^3/uL (1.5-8.5); NEUTROPHILS % 65.2 % (36.0-66.0); PLATELET COUNT, AUTOMATED 100 10^3/uL (150-450); RED BLOOD COUNT 2.18 10^6/uL (4.30-6.10); WHITE BLOOD COUNT 11.1 10^3/uL (4.0-10.0)
[2023-11-25 06:26] LABS: ALBUMIN 2.4 G/DL (3.2-5.2); BILIRUBIN,TOTAL 11.8 MG/DL (0.3-1.2); CALCIUM LEVEL 8.9 MG/DL (8.3-10.6); CREATININE FOR GFR 2.25 MG/DL (0.70-1.30); GLOMERULAR FILTRATION RATE 31.1 (>49); POTASSIUM SERUM 3.7 MMOL/L (3.5-5.1); TOTAL PROTEIN 5.3 G/DL (5.7-8.2)
[2023-11-25 07:45] VITALS: BP 115/63; TEMP 97.2; O2SAT 100
[2023-11-25 11:49] VITALS: BP 106/57; TEMP 97.2; O2SAT 100
[2023-11-25 15:36] VITALS: BP 113/60; TEMP 97.8; O2SAT 100
[2023-11-25] MEDS ORDERED: ONDANSETRON 4MG ORAL DISINTEGRATING TAB SL PRN (16:30)
[2023-11-25 20:30] VITALS: BP 136/61; TEMP 97.6; O2SAT 99
[2023-11-26 00:13] VITALS: BP 129/63; TEMP 97; O2SAT 99
[2023-11-26 03:51] VITALS: BP 134/61; TEMP 96.9; O2SAT 99
[2023-11-26 05:32] LABS: HEMATOCRIT 25.1 % (42.0-52.0); HEMOGLOBIN 8.8 g/dl (13.5-17.5); MEAN CORPUSCULAR HEMOGLOBIN 37.8 pg (27.0-33.0); MEAN CORPUSCULAR HGB CONC 35.1 g/dl (32.0-36.5); MEAN CORPUSCULAR VOLUME 107.7 fl (80.0-96.0); PLATELET COUNT, AUTOMATED 104 10^3/uL (150-450); RED BLOOD COUNT 2.33 10^6/uL (4.30-6.10); WHITE BLOOD COUNT 14.1 10^3/uL (4.0-10.0)
[2023-11-26 06:05] LABS: ALBUMIN 2.5 G/DL (3.2-5.2); BILIRUBIN,TOTAL 11.9 MG/DL (0.3-1.2); CALCIUM LEVEL 8.9 MG/DL (8.3-10.6); CREATININE FOR GFR 1.91 MG/DL (0.70-1.30); GLOMERULAR FILTRATION RATE 37.6 (>49); POTASSIUM SERUM 4.1 MMOL/L (3.5-5.1); TOTAL PROTEIN 5.6 G/DL (5.7-8.2)
[2023-11-26 07:40] VITALS: BP 106/61; TEMP 97.1; O2SAT 100
[2023-11-26 07:56] LABS: PROCALCITONIN 0.39 ng/ml
[2023-11-26 12:14] VITALS: BP 107/58; TEMP 97.1; O2SAT 99
[2023-11-26] MEDS ORDERED: BISACODYL 10MG SUPP PR PRN (12:30)
[2023-11-26] MEDS ORDERED: ATROPINE SULFATE 1% OPHTH SOLN 2ML BTL SL PRN (12:30)
[2023-11-26] MEDS ORDERED: ACETAMINOPHEN 650MG SUPP PR PRN (12:30)
[2023-11-26] MEDS ORDERED: MORPHINE 2 MG/ML 1ML VIAL IV PRN (12:30)
[2023-11-26] MEDS ORDERED: LORazepam 2 MG/ML 1ML VIAL IV PRN (12:30)
[2023-11-26] MEDS ORDERED: ONDANSETRON 4MG 2ML VIAL IV PRN (12:30)
[2023-11-26] MEDS: MIDODRINE 5 MG TAB PO SCH (16:23)
[2023-11-27] MEDS: LORazepam 1 MG TAB PO PRN (17:18)
[2023-11-28] MEDS: MORPHINE 10MG/0.5ML ORAL CONCENTRATE SOLUTION U/D SL PRN (05:46)
[2023-11-29] MEDS: FLEET ENEMA PR PRN (05:32)
[2023-11-30] MEDS: HYOSCYAMINE SULFATE 0.125 MG SUBL TABLET PO PRN (05:24)
[2023-11-30] MEDS: SCOPOLAMINE 1MG TRANSDERMAL PATCH TOP PRN (07:53)
== END 2023-11-30 11:27 | disposition expired | DRG 441 ==
LOC: M ED 11:37 → M ED INP 14:29 → M PCU 17:07 → M MSPAV 11-27 16:25
PROVIDERS: ADMIT Family Medicine; ATTEND Internal Medicine
PROC: 0W9G3ZZ Drainage of Peritoneal Cavity, Percutaneous Approach (ICD-10-PCS; principal; 2023-11-24 12:00)
DX: K76.82 Hepatic encephalopathy (principal); K76.7 Hepatorenal syndrome; K72.00 Acute and subacute hepatic failure without coma; G93.41 Metabolic encephalopathy; D61.818 Other pancytopenia; I50.32 Chronic diastolic (congestive) heart failure; E87.1 Hypo-osmolality and hyponatremia; E87.20 Acidosis, unspecified; N17.9 Acute kidney failure, unspecified; I13.0 Hypertensive heart and chronic kidney disease with heart failure and stage 1 through stage 4 chronic kidney disease, or unspecified chronic kidney disease; G47.33 Obstructive sleep apnea (adult) (pediatric); I25.10 Atherosclerotic heart disease of native coronary artery without angina pectoris; I48.91 Unspecified atrial fibrillation; Z51.5 Encounter for palliative care; Z66 Do not resuscitate; K21.9 Gastro-esophageal reflux disease without esophagitis; E78.5 Hyperlipidemia, unspecified; E66.01 Morbid (severe) obesity due to excess calories; M10.9 Gout, unspecified; F32.9 Major depressive disorder, single episode, unspecified; R21 Rash and other nonspecific skin eruption; M19.90 Unspecified osteoarthritis, unspecified site; R33.9 Retention of urine, unspecified; K70.31 Alcoholic cirrhosis of liver with ascites; N18.9 Chronic kidney disease, unspecified; D69.59 Other secondary thrombocytopenia; D63.8 Anemia in other chronic diseases classified elsewhere; Z86.73 Personal history of transient ischemic attack (TIA), and cerebral infarction without residual deficits; R57.1 Hypovolemic shock; Z95.0 Presence of cardiac pacemaker; Z98.49 Cataract extraction status, unspecified eye; Z98.84 Bariatric surgery status; Z95.828 Presence of other vascular implants and grafts; Z87.891 Personal history of nicotine dependence; Z68.32 Body mass index [BMI] 32.0-32.9, adult